=== PATIENT | female | born 1945 | race Caucasian/White ===

== ENCOUNTER 2016-08-22 08:10 | Observation (INO) | payer MEDICARE, OTHER ==
[~2016-08-22] VITALS: Ht 147.3 cm; Wt 83.9 kg
[~2016-08-22 08:10] MED LIST: DICY20TA PO; OMEP40CA11 PO; ONDA4TAB PO; RANI150C3 PO; [UNRECOGNIZED DRUG - CODE] PO
--- OUTSIDE RECORDS SUMMARY | 2016-08-22 08:16 | XMS REPORT | Continuity of Care Document ---
Author Author Vadim [facility] Address [address] [place] [address] Care Team Providers Care National Service Officer Name Role Phone MandaRaisaVijaya K Unavailable [phone] Insurance Providers Payer Name Policy Number Subscriber Name Relationship Medicare [id number] [place] PATIENT/SELF [employer] [id number] [place] PATIENT/SELF Advance Directives Directive Response Recorded Date/Time Advance Directive Information: AD BROCHURE GIVEN TO PT 08/14/16 0:21am Problems No problem information available. Medications Current Home Medications Medication Dose Units Route Directions Days/Qty Instructions Start Date Acetaminophen 325 MG (Tylenol 325 MG) 1 TAB TAB as needed Aspirin (Aspirin EC) 81 MG TABLET.DR 81 MG BY MOUTH DAILY HOLD TILL WEDNESDAY 08/16 Calcium Carbonate/Vitamin D3 (Calcium + Vitamin D Tablet) 1 EACH TABLET 1 TAB BY MOUTH NEEDED Clonidine (Catapres) 0.3 MG TABLET 0.3 MG PO TWICE DAILY For HAND TREMOR Take with a sip of water the morning of surgery. Diltiazem ER (Cardizem SR) 90 MG CAP 90 MG BY MOUTH EVERY 12 HOURS Take with a sip of water the morning of surgery. Docusate Sodium (Stool Softener) 250 MG CAPSULE 250 MG BY MOUTH DAILY Hydrocodone 5MG/Acet 325MG ([place] 5-325 Tablet) 1 EACH TABLET 1 TAB BY MOUTH EVERY 4 HOURS NEEDED PRN PAIN TAKE ONE BY MOUTH EVERY 4 HOURS NEEDED FOR PAIN. DO NOT TAKE EXTRATYLENOL PRODUCTS WHILE ON THIS MEDICATION. Ibuprofen 400 MG TABLET 400 MG BY MOUTH as needed PRN PAIN NONE SINCE Ketotifen Fumarate (Alaway) 10 ML DROPS 1 DROP BOTH EYES TWICE DAILY [place]-3 Fatty Acids (Fish Oil) 1,200 MG CAP 1,200 MG BY MOUTH TWICE DAILY LAST DOSE 06/25/16 Venlafaxine XR (Effexor XR) 75 MG CAP.ER.24H 1 TAB PO BEDTIME Past Home Medications Medication Directions Ordered Status Deleted From Drug Dictionary (Vitamin D) 400 Iu Tab Tab, Unknown Discontinued Diltiazem Hcl (Cardizem) 30 Mg Tablet Tablet, 30 Mg Po TWICE DAILY Unknown Discontinued Docusate Sodium (Colace Cap) Cap Cap, 250 Mg By Mouth DAILY Unknown Discontinued Fexofenadine Hcl (Susy Allergy) 180 Mg Tablet Tablet, 180 Mg By Mouth DAILY Unknown Discontinued Fexofenadine-Pseudoephedrine (Susy-D 12-Hr) 1 Ea Tab Tab, 1 Tab By Mouth EVERY 12 HOURS Unknown Discontinued Glucosamine/D3/Boswellia Mariah (Osteo Bi-Flex Caplet) 1 Each Tablet Tablet, Unknown Discontinued Lisinopril (Prinivil) 10 Mg Tablet Tablet, 10 Mg Po Bedtime Unknown Discontinued Naproxen Sodium (Aleve) 220 Mg Tab Tab, 200 Mg By Mouth as needed Unknown Discontinued Vitamin B Complex 1 Each Capsule Capsule, 1 Cap By Mouth DAILY Unknown Discontinued Social History No social history. Hospital Discharge Instructions No hospital discharge instructions. Plan of Care No plan of care. Functional Status No functional status results. Allergies, Adverse Reactions, Alerts Allergen Type Severity Reaction Status Last Updated IODINATED CONTRAST MEDIA - ORAL AND Allergy Unknown Active 08/09/16 IV AND ORAL CONTRAST Allergy Unknown Active 08/09/16 Immunizations Name Date Given Type *Flu Shot: Historical *Tetanus Shot: Up To Date Historical Vital Signs Vital Reading Collection Date/Time Result Blood Pressure 08/14/16 9:40am 96/49 Patient Temperature 08/14/16 9:25am 97.8 Respiratory Rate 08/14/16 9:40am 20 Pulse Rate 08/14/16 9:40am 62 Bedside Pulse Oximetry 08/14/16 9:40am 97 Height 08/14/16 6:30am 147.32 cm Height 08/14/16 6:30am 4 ft 10 in Weight 08/14/16 6:30am 79.379 kg Weight 08/14/16 6:30am 175 lb Body Mass Index 08/14/16 6:30am 36.6 Results No known relevant diagnostic tests, laboratory data and/or discharge summary. Procedures Procedure Status Date Provider(s) BIOPSY/REMOVAL LYMPH NODES Completed 07/10/16 Tavo Cervantes DO Encounters Encounter Location Arrival/Admit Date Discharge/Depart Date Attending Provider Departed Surgical [facility] 08/14/16 0:21am 08/14/16 10:35am Tavo Cervantes DO Registered [facility] 08/07/16 11:26am Fabio Zamudio MD Registered [facility] 07/16/16 1:07pm Fabio Zamudio MD Departed Surgical [facility] 07/10/16 0:37am 07/10/16 12:00pm Tavo Cervantes DO Registered [facility] 07/05/16 12:56pm Fabio Zamudio MD Registered [facility] 07/05/16 8:04am Tavo Cervantes DO Registered [facility] 07/02/16 7:27am Fabio Zamudio MD Registered [facility] 05/23/16 3:01pm Vijaya Holman
--- OUTSIDE RECORDS SUMMARY | 2016-08-22 08:16 | XMS REPORT | Continuity of Care Document ---
Author Author [facility] Address Unknown Phone Unavailable Care Team Providers Care Eligibility Manager Name Role Phone Primary Care Physician Unavailable Source Comments Some departments are not documenting in the electronic medical record. If you do not see the information that you expected, contact Release of Information in the Health Information Management department at [phone] for further assistance in locating additional records.[facility] Active Allergies and Adverse Reactions Not on File Current Medications Not on file Active Problems Not on file Social History Tobacco Use Types Packs/Day Years Used Date Never Assessed Last Filed Vital Signs Vital Sign Reading Time Taken Blood Pressure 131/98 07/27/2012 2:32 PM CDT Pulse - - Temperature - - Respiratory Rate - - Height 1.473 m (4' 10") 07/27/2012 2:32 PM CDT Weight 74.844 kg (165 lb) 07/27/2012 2:32 PM CDT Body Mass Index 34.49 07/27/2012 2:32 PM CDT Oxygen Saturation - - Plan of Care Health Maintenance Due Date Last Done Comments Physical (Comprehensive) 10/26/1950 Exam Pertussis Vaccine 10/26/1954 Tetanus Vaccine 10/26/1960 Breast Cancer Screening 1983 Colorectal Cancer 10/26/1993 Screening Shingles Vaccine 2003 Osteoporosis Screening 10/26/2008 Prevnar/Pneumovax (#1) 10/26/2008 Influenza Vaccine 01/03/2017 Results from Last 3 Months Not on file
--- OUTSIDE RECORDS SUMMARY | 2016-08-22 08:16 | XMS REPORT | Continuity of Care Document ---
Author Author Vadim [facility] Address [address] [place] [address] Care Team Providers Care Tube Bender Hand Name Role Phone MandaRaisaVijaya K Unavailable [phone] Insurance Providers Payer Name Policy Number Subscriber Name Relationship Medicare [id number] [place] PATIENT/SELF [employer] [id number] [place] PATIENT/SELF Advance Directives Directive Response Recorded Date/Time Advance Directive Information: AD BROCHURE GIVEN TO PT 07/10/16 0:37am Problems No problem information available. Medications Current Home Medications Medication Dose Units Route Directions Days/Qty Instructions Start Date Acetaminophen 325 MG (Tylenol 325 MG) 1 TAB TAB as needed Aspirin (Aspirin EC) 81 MG TABLET. 81 MG BY MOUTH DAILY HOLD ASPIRIN UNTIL WEDNESDAY 07/12 Calcium Carbonate/Vitamin D3 (Calcium + Vitamin D Tablet) 1 EACH TABLET 1 TAB BY MOUTH NEEDED Clindamycin HCl 300 MG CAPSULE 300 MG BY MOUTH EVERY 8 HOURS For ANTIBIOTIC FOR SORE THROAT/COU Clonidine (Catapres) 0.3 MG TABLET 0.3 MG PO TWICE DAILY For HAND TREMOR Take with a sip of water the morning of surgery. Diltiazem ER (Cardizem SR) 90 MG CAP 90 MG BY MOUTH EVERY 12 HOURS Take with a sip of water the morning of surgery. Docusate Sodium (Stool Softener) 250 MG CAPSULE 250 MG BY MOUTH DAILY Hydrocodone 5MG/Acet 325MG ([place] 5-325 Tablet) 1 EACH TABLET 1 TAB BY MOUTH EVERY 4 HOURS NEEDED PRN PAIN Hydrocodone 5MG/Acet 325MG ([place] 5-325 Tablet) 1 EACH TABLET 1 TAB BY MOUTH EVERY 4 HOURS NEEDED PRN PAIN TAKE ONE BY MOUTH EVERY 4 HOURS NEEDED FOR PAIN. DO NOT TAKE EXTRATYLENOL PRODUCTS WHILE ON THIS MEDICATION. Ibuprofen 400 MG TABLET 400 MG BY MOUTH as needed PRN PAIN NONE SINCE [place]-3 Fatty Acids (Fish Oil) 1,200 MG CAP 1,200 MG BY MOUTH TWICE DAILY LAST DOSE 06/25/16 Tobramycin Sulf/Dexamethasone (Tobradex Eye Drops) 5 ML DROPS.SUSP 1 DROP BOTH EYES FOUR TIMES DAILY For EYE INFECTION Venlafaxine XR (Effexor XR) 75 MG CAP.ER.24H [...] Allergen Type Severity Reaction Status Last Updated NO KNOWN DRUG ALLERGIES Allergy Unknown Active 07/05/16 Immunizations Name Date Given Type *Flu Shot: Historical *Tetanus Shot: Up To Date Historical Vital Signs Vital Reading Collection Date/Time Result Blood Pressure 07/10/16 11:50am 120/76 Patient Temperature 07/10/16 10:50am 97.4 Respiratory Rate 07/10/16 11:50am 16 Pulse Rate 07/10/16 11:50am 63 Bedside Pulse Oximetry 07/10/16 11:50am 95 Height 03/08/17 7:23am 147.32 cm Height 07/10/16 7:23am 4 ft 10 in Weight 07/10/16 7:23am 79.832 kg Weight 07/10/16 7:23am 176 lb Body Mass Index 07/10/16 7:23am 36.8 Results No known relevant diagnostic tests, laboratory data and/or discharge summary. Procedures No Known History of Procedures. Encounters Encounter Location Arrival/Admit Date Discharge/Depart Date Attending Provider Departed Surgical Day Care [facility] 07/10/16 0:37am 07/10/16 12:00pm Tavo Cervantes DO Registered [facility] 07/05/16 12:56pm Fabio Zamudio MD Registered [facility] 07/05/16 8:04am Tavo Cervantes DO Registered [facility] 07/02/16 7:27am Fabio Zamudio MD Registered [facility] 05/23/16 3:01pm Vijaya Holman
--- OUTSIDE RECORDS SUMMARY | 2016-08-22 08:17 | XMS REPORT | Continuity of Care Document ---
Author Author Vadim [facility] Address [address] [place] [address] Care Team Providers Care Crm Marketing Specialist Name Role Phone MandaRaisaVijaya K Unavailable [phone] Insurance Providers Payer Name Policy Number Subscriber Name Relationship Medicare [id number] [place] [place] PATIENT/SELF [employer] [id number] [place] [place] PATIENT/SELF Advance Directives Directive Response Recorded Date/Time Advance Directive Information: AD BROCHURE GIVEN TO PT 03/25/16 0:03am Problems No problem information available. Medications Current Home Medications Medication Dose Units Route Directions Days/Qty Instructions Start Date Acetaminophen 325 MG (Tylenol 325 MG) 1 TAB TAB as needed Amoxicillin* (Amoxil*) 875 MG TABLET 875 MG BY MOUTH THREE TIMES DAILY MASTOIDITIS TREATMENT, MRI LAST FRIDAY Aspirin (Aspirin EC) 81 MG TABLET. 81 MG BY MOUTH DAILY LAST DOSE 03/07/16 Calcium Carbonate/Vitamin D3 (Calcium + Vitamin D [...] MG BY MOUTH DAILY Hydrocodone 5MG/Acet 325MG ([place] 5-325 Tablet) 1 EACH TABLET 1 TAB BY MOUTH EVERY 4 HOURS NEEDED PRN PAIN Ibuprofen 400 MG TABLET 400 MG BY MOUTH as needed PRN PAIN STOPPED FOR PROCEDURE [place]-3 Fatty Acids (Fish Oil) 1,200 MG CAP 1,200 MG BY MOUTH TWICE DAILY LAST DOSE 03/07/16 Venlafaxine XR (Effexor XR) 75 MG CAP.ER.24H [...] NO KNOWN DRUG ALLERGIES Allergy Unknown Active 03/21/16 Immunizations Name Date Given Type *Flu Shot: Historical *Tetanus Shot: Unknown Historical Vital Signs Vital Reading Collection Date/Time Result Blood Pressure 03/25/16 10:17am 108/56 Patient Temperature 03/25/16 10:07am 98.2 Respiratory Rate 03/25/16 10:17am 18 Pulse Rate 03/25/16 10:17am 49 Bedside Pulse Oximetry 03/25/16 10:17am 95 Height 03/25/16 8:03am 147.32 cm Height 03/25/16 8:03am 4 ft 10 in Weight 03/25/16 8:03am 78.018 kg Weight 03/25/16 8:03am 172 lb Body Mass Index 03/25/16 8:03am 35.9 Results No known relevant diagnostic tests, laboratory data and/or discharge summary. Procedures No Known History of Procedures. Encounters Encounter Location Arrival/Admit Date Discharge/Depart Date Attending Provider Departed Surgical Day Care [facility] 03/25/16 0:02am 03/25/16 10:50am Tavo Cervantes DO Registered [facility] 03/15/16 2:30am Blayne Tenorio Registered [facility] 02/27/16 1:22am Fabio Zamudio MD Registered [facility] 02/26/16 8:09am Fabio Zamudio MD
--- OUTSIDE RECORDS SUMMARY | 2016-08-22 08:17 | XMS REPORT ---
Author Author Augusto Omalley Organization [employer] Address Unknown Phone Unavailable Care Team Providers Care Fire Observer Name Role Phone Augusto Omalley CP Unavailable Allergies, Adverse Reactions, Alerts Substance Reaction Event Type Iodine Info Not Available Drug Allergy Problems Problem Type Condition Code Onset Dates Condition Status Problem Lymphoma 202.80 Active Assessment Essential (primary) hypertension I10 Active Problem Essential (primary) hypertension I10 Active Assessment Lymphoma 202.80 Active Medications Medication Code System Code Instructions Start Date End Date Status Dosage Venlafaxine HCl [facility] [address]-03 75 MG Orally qd 1 tablet with food Aspirin [facility] [address] 81 MG Orally Once a day 1 tablet Susy NDC 0 prn 1 tab Ibuprofen [facility] [address]-72 Orally prn 1 tablet as needed Calcium [facility] [address] Orally qd 1 tablet with food Fish Oil [facility] [address] 1200 MG Orally Once a day 1 capsule Benadryl [facility] [address]-27 Orally prn 1 capsule as needed Clonidine HCl [facility] [address]-13 0.3 MG Orally bid 1 tablet Vitamin B Complex [facility] [address] Orally prn 1 tab Diltiazem HCl [facility] [address]-48 90 MG Orally bid 1 tablet before meals and at bedtime Stool Softener [facility] [address]-55 Orally Once a day 1 capsule as needed Procedures Procedure Coding System Code Date Office Visit, New Pt., Level 4 CPT-4 26874 Feb 22, 2015 Vital Signs Date/Time: Feb 22, 2015 BMI 35.94 Index Weight 172 lbs Height 4 ft 10 in in Cardiac Monitoring Heart Rate 98 /min Oximetry 97% % Blood Pressure Diastolic 72 mm Hg Blood Pressure Systolic 130 mm Hg Results No Known Results Summary Purpose [employer] Submission
--- NOTE | 2016-08-22 08:45 | NUR ---
ADMIT PT TO [facility] A DIRECT ADMIT FOR CHEMOTHERAPY. PT ALERT AND ORIENTED. VITALS OBTAINED AND STABLE CHARTED. PT PLEASANT AND TALKATIVE. WILL CONTINUE TO MONITOR.
[2016-08-22 08:50] VITALS: BP 117/65; PULSE 59; RESP 18; TEMP 96.7; O2SAT 95
[2016-08-22] MEDS ORDERED: DiphenhydrAMINE 50 MG/ML INJECTION IV PRN (09:30)
[2016-08-22] MEDS ORDERED: HYDROCORTISONE 100mg/2ml Injection IV PRN (09:30)
[2016-08-22 09:35] VITALS: Ht 147.3 cm; Wt 83.9 kg
[2016-08-22] MEDS ORDERED: DEXAMETHASONE 10 MG in NORMAL SALINE 50 ML IV ONE (10:00)
[2016-08-22] MEDS ORDERED: PALONOSETRON 0.25mg/5ml INJECTION IV ONE (10:00)
[2016-08-22] MEDS ORDERED: NORMAL SALINE IV ONE ×5 (10:30→17:30)
[2016-08-22] MEDS ORDERED: FOSAPREPITANT IV ONE (10:30)
[2016-08-22 10:57] LABS: BLOOD, URINE TRACE-INTACT (NEGATIVE); COLOR,URINE YELLOW (YELLOW); LEUKOCYTE ESTERASE ,URINE NEGATIVE (NEGATIVE); NITRITE,URINE NEGATIVE (NEGATIVE); UROBILINOGEN,URINE 0.2 EU/DL (NORMAL)
[2016-08-22] MEDS ORDERED: CALC1TAB PO (10:57)
[2016-08-22] MEDS ORDERED: DOCU250C77 PO (10:57)
[2016-08-22] MEDS ORDERED: VENL-68 PO (10:57)
[2016-08-22] MEDS ORDERED: DILT90CA PO (10:57)
[2016-08-22] MEDS ORDERED: CLON0.3T PO (10:57)
[2016-08-22] MEDS ORDERED: KETO10DR3 BOTH EYES (10:57)
[2016-08-22] MEDS ORDERED: MULT-933 PO (10:57)
[2016-08-22] MEDS ORDERED: ACET-2321 PO (10:57)
[2016-08-22] MEDS ORDERED: ETOPOSIDE IV ONE (11:15)
--- NOTE | 2016-08-22 11:30 | NUR ---
STATUS UA OBTAINED ORDERED. PORT A CATH TO R CHEST ACCESSED PER Cr BERMUDEZ RN. PORT A CATH NOTED TO HAVE BRISK BLOOD RETURN BEFORE MEDS GIVEN. PRE MEDS BEING GIVEN ORDERED-SEE EMAR. PT DENIES C/O'S. WILL MONITOR.
--- NOTE | 2016-08-22 12:11 | HPPDOC ---
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 She was diagnosed with lymphoma in March 2008 and underwent treatment in 2008. Unfortunately in May 2016. She found a lump in the right upper extremity which revealed a follicular lymphoma, grade 3. She received Rituximab Saturday 08/19 at the clinic and Etoposide yesterday 08/21. She has been under the care of Dr. Raphael and is starting aggressive IV chemotherapy today. Admission vital signs are as follows 96.7, pulse 59, respiration rate 18, blood pressure 117/65, room air saturations 95%. Sudha is seen and examined today. She is alert, orientated and pleasant. She is currently without complaints of pain. She does suffer from chronic scoliosis and chronic back pain that she manages with frequent chiropractic adjustments. Past Medical History Past Medical History History of lymphoma-2007 "Leaky heart valve" Spastic colon Diverticulosis Fibromyalgia Spinal stenosis Polyarthritis. GERD Asthma Rectovaginal fistula Surgical History Patient's Surgical History: Port-A-Cath placement-08/14/16 Tonsillectomy Exploratory Lap 1977 [id number] Bilateral bunionectomy-2010 Left rotator cuff repair Left knee replacement Colorectal surgery for rectovaginal fistula repair Bladder tuck Current Medications Home Meds Reported Medications Docusate Sodium (Docusate Sodium) 250 Mg Capsule, 1 CAP PO DAILY, CAP 08/22/16 Diltiazem HCl (Diltiazem ER) 90 Mg Cap.er.12h, 90 MG PO Q12HR, CAP 08/22/16 Venlafaxine HCl (Venlafaxine HCl ER) 75 Mg Cap.er.24h, 75 MG PO HS, CAP 08/22/16 Ketotifen Fumarate (Alaway) 10 Ml Drops, 1 DROP BOTH EYES BID, BOTTLE 08/22/16 Clonidine HCl (Clonidine HCl) 0.3 Mg Tablet, 1 TAB PO BID, TAB 08/22/16 Multivitamin (Multi-Day Vitamins) 1 Each Tablet, 1 TAB PO DAILY, #30 TAB 08/22/16 Calcium Carbonate/Vitamin D3 (Caltrate 600 + D Tablet) 1 Each Tablet, DAILY 08/22/16 Acetaminophen (Tylenol) 325 Mg Tablet, 1-2 TAB PO, #60 TAB 2 Refills 08/22/16 Dicyclomine Hcl (Bentyl) 20 Mg Tablet, 20 MG PO QID 01/24/11 Ondansetron Hcl (Zofran) 4 Mg Tablet, 4 MG PO PRN 01/24/11 Omeprazole (Prilosec) 40 Mg Capsule.dr, 40 MG PO BID 01/24/11 Ranitidine Hcl (Zantac) 150 Mg Capsule, 150 MG PO BID 01/24/11 Clonidine Hcl (Clonidine Hcl) 0.3 Mg Tablet, 0.3 MG PO BID 01/24/11 Allergies: Coded Allergies: No Known Allergies (Unverified , 01/24/11) Family History Family History: Father- Deseased at age 53 from [place] (also had Brain Tumor) Multiple family menters wtih breast cancer, Colorectal cancer, bladder cancer, Prostrate Cancer, Thyroid cancer Social History Smoking Status: Never smoker Marital Status: Advance Directives: Yes DPOA for Healthcare Only (: GABY) Social History Comments PCP Dr Raisa feldman FP Review of Systems Musculoskeletal General: pain (chronic back pain) All Other Systems All Other Systems: Reviewed (remainder of 10-point ROS Neg.) Physical Exam General General Nourishment: well nourished, well developed Vital Signs Vital Signs Date Time Temp Pulse Resp B/P Pulse Ox O2 Delivery O2 Flow Rate FiO2 08/22/16 08:50 96.7 59 18 117/65 95 Room Air Height (Feet): 4 Height (Inches): 10.00 ENMT Brief: FOUND: mucosa moist, normal dentition, NOT FOUND: pharnyx erythema Respiratory Brief: FOUND: clear all mcgarry, equal bilaterally, NOT FOUND: wheezes Cardiovascular (brief) Cardiac Brief: FOUND: regular rate, regular rhythm, NOT FOUND: murmur, pedal edema Integumentary (brief) Integumentary Brief: FOUND: dry, pink, warm Neurologic (brief) Neurological Brief: FOUND: cranial 2-12 intact Neurologic RN Documented GCS Eye Opening: Verbal: Motor: Total: Psychiatric (brief) FOUND: alert, attentive, normal affect, oriented Laboratory Laboratory Tests Test 08/22/16 10:20 Urine Collection Type Cleancatch-midstream Urine Color Yellow Urine Turbidity Clear Urine pH 6.0 Urine Specific [place] 1.020 Urine Protein Negative Urine Glucose (UA) Negative Urine Ketones Negative Urine Blood Trace-intact Urine Nitrite Negative Urine Bilirubin Negative Urine Urobilinogen 0.2EU/DL Urine Leukocyte Esterase Negative Urinalysis Comment Microscopic not ind. Assessment & Plan Problems: (1) Lymphoma Status: Acute (2) Encounter for chemotherapy management (3) Fibromyalgia Status: Chronic (4) Scoliosis Status: Chronic (5) Chronic back pain Status: Chronic (6) Spastic colon Status: Chronic (7) Diverticulosis Status: Chronic (8) Polyarthritis Status: Chronic Plan/Intensity of Service Admit patient to outpatient observation under the care of Dr. Nieto for lymphoma, encounter for chemotherapy. All chemotherapy and oncology orders are as per Dr. Raphael Medically, patient appears to be stable. Monitor blood pressure and continue on normal home medications including Cardizem and Catapres twice a day SCDs to bilateral lower extremity for DVT prophylaxis Zofran available as needed for nausea Patient may have regular diet and be up with assistance At time of discharge her medical care will return to her primary care provider at [facility], Dr. Raisa Holman Code Status Limited Code Hospital Course Summary Disclaimer The hospital course summary below is not to be considered part of the above Progress Note. Hospital Course Summary Admit patient to outpatient observation under the care of Dr. Nieto for lymphoma, encounter for chemotherapy. All chemotherapy and oncology orders are as per Dr. Raphael Medically, patient appears to be stable. Monitor blood pressure and continue on normal home medications including Cardizem and Catapres twice a day SCDs to bilateral lower extremity for DVT prophylaxis Zofran available as needed for nausea Patient may have regular diet and be up with assistance At time of discharge her medical care will return to her primary care provider at [facility], KARTHIKEYAN Barraza MD 08/22/16 4676: Past Medical History Current Medications Home Meds Reported Medications Docusate Sodium (Docusate Sodium) 250 Mg Capsule, 1 CAP PO DAILY, CAP 08/22/16 Diltiazem HCl (Diltiazem ER) 90 Mg Cap.er.12h, 90 MG PO Q12HR, CAP 08/22/16 Venlafaxine HCl (Venlafaxine HCl ER) 75 Mg Cap.er.24h, 75 MG PO HS, CAP 08/22/16 Ketotifen Fumarate ([place]) 10 Ml Drops, 1 DROP BOTH EYES BID, BOTTLE 08/22/16 Clonidine HCl (Clonidine HCl) 0.3 Mg Tablet, 1 TAB PO BID, TAB 08/22/16 Multivitamin (Multi-Day Vitamins) 1 Each Tablet, 1 TAB PO DAILY, #30 TAB 08/22/16 Calcium Carbonate/Vitamin D3 (Caltrate 600 + D Tablet) 1 Each Tablet, DAILY 08/22/16 Acetaminophen (Tylenol) 325 Mg Tablet, 1-2 TAB PO, #60 TAB 2 Refills 08/22/16 Dicyclomine Hcl (Bentyl) 20 Mg Tablet, 20 MG PO QID 01/24/11 Ondansetron Hcl (Zofran) 4 Mg Tablet, 4 MG PO PRN 01/24/11 Omeprazole (Prilosec) 40 Mg Capsule.dr, 40 MG PO BID 01/24/11 Ranitidine Hcl (Zantac) 150 Mg Capsule, 150 MG PO BID 01/24/11 Clonidine Hcl (Clonidine Hcl) 0.3 Mg Tablet, 0.3 MG PO BID 01/24/11 Allergies: Coded Allergies: No Known Allergies (Unverified , 01/24/11) Assessment & Plan Problems: (1) Lymphoma Status: Acute (2) Encounter for chemotherapy management (3) Fibromyalgia Status: Chronic (4) Scoliosis Status: Chronic (5) Chronic back pain Status: Chronic (6) Spastic colon Status: Chronic (7) Diverticulosis Status: Chronic (8) Polyarthritis Status: Chronic (9) Obesity (BMI 30-39.9) Status: Chronic Plan/Intensity of Service Have independently interviewed and examined pt. Chart reviewed. Case discussed with Dr Perdomo and my INDUSTRIAL RELATIONS DIRECTOR. Care plan developed with my supervision (Chemo as per ONC); agree with above. Doing well overall. Feels ready for chemo-not going to let the cancer get her down. Breathing well-not with SOA, cough, congestion or pain with breathing. No chest pressure, pain or heaviness. Appetite stable. No pain with swallowing. No f/c. Does note difficulty sleeping when on steroids-feels 'wound-up.' Lungs: clear bilaterally, no distress on RA CV: regular AB: Soft nt/nd +BS MSE: awake alert appropriate Plan; Initiate chemo as per ONC-IVF for hydration to minimize potential toxicities. SCD for DVT prevention. Continue home medications. Zofran prn nausea. Ambien 5mg at night as needed for sleep. DVT Prophylaxis: SCD'S VLAD BERNSTEIN V INDUSTRIAL RELATIONS DIRECTOR Aug 22, 2016 11:54 KARTHIKEYAN NIETO MD Aug 22, 2016 13:56
[2016-08-22] MEDS ORDERED: ONDANSETRON 4mg/2ml INJECTION IV PRN (12:15)
[2016-08-22] MEDS ORDERED: ACETAMINOPHEN 325 MG TABLET PO PRN (12:15)
[2016-08-22] MEDS ORDERED: CARBOPLATIN IV ONE ×2 (12:30→16:30)
--- NOTE | 2016-08-22 13:25 | CONSPD ---
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 Patient was seen by Dr. Raphael, then had consultation with Dr. Jhonatan Pendleton at [facility]. Her case was reviewed with multidisciplinary lymphoma conference in [place], and treatment option was determined to be Rituxan plus ifosfamide plus carboplatin plus etoposide or R- ICE chemotherapy. She received Rituximab Friday08/19/16, Etoposide yesterday , and remainder of treatment with ifosfamide plus carboplatin plus etoposide will be continued inpatient at [facility], secondary to risk for acute renal injury, hematuria, and potential neurological toxicity. Patient is alone in room at time of intake, reclining in hospital bed. She is alert and oriented, pleasant affect and currently has no complaints. Reports had mild headache yesterday, relieved with Tylenol. Has chronic intermittent back pain secondary to scoliosis. She has a long history of benign essential tremor and subjectively reports "leaky valve " and follows with electrical sign servicer Dr. Augusto Omalley every 6 months. Past medical history includes fibromyalgia, diverticulosis, GERD, asthma and polyarthritis. Past Medical History Past Medical History History of lymphoma-2007 "Leaky heart valve" Spastic colon Diverticulosis Fibromyalgia Spinal stenosis Polyarthritis. GERD Asthma Rectovaginal fistula Surgical History Patient's Surgical History: Port-A-Cath placement-08/14/16 Tonsillectomy Exploratory Lap 1977 [id number] Bilateral bunionectomy-2010 Left rotator cuff repair Left knee replacement Colorectal surgery for rectovaginal fistula repair Bladder tuck Current Medications Home Meds Reported Medications Aspirin (Aspir 81) 81 Mg Tablet., 81 MG PO DAILY 08/22/16 Dicyclomine HCl (Dicyclomine HCl) 10 Mg Capsule, 10 MG PO QID Y for PRN ORDERS 08/22/16 Docusate Sodium (Docusate Sodium) 250 Mg Capsule, 250 MG PO DAILY Y for CONSTIPATION 08/22/16 Diltiazem HCl (Diltiazem ER) 90 Mg Cap.er.12h, 90 MG PO Q12HR 08/22/16 Venlafaxine HCl (Venlafaxine HCl ER) 75 Mg Cap.er.24h, 75 MG PO HS 08/22/16 Ketotifen Fumarate (Alaway) 10 Ml Drops, 1 DROP BOTH EYES BID 08/22/16 Multivitamin (Multi-Day Vitamins) 1 Each Tablet, 1 TAB PO DAILY 08/22/16 Calcium Carbonate/Vitamin D3 (Caltrate 600 + D Tablet) 1 Each Tablet, 1 TAB PO DAILY Y for PRN ORDERS 08/22/16 Acetaminophen (Tylenol) 325 Mg Tablet, 325-650 MG PO Q4HR Y for PAIN 08/22/16 Omeprazole (Prilosec) 40 Mg Capsule.dr, 40 MG PO BID 01/24/11 Ranitidine Hcl (Zantac) 150 Mg Capsule, 150 MG PO BID 01/24/11 Clonidine Hcl (Clonidine Hcl) 0.3 Mg Tablet, 0.3 MG PO BID 01/24/11 Allergies: Coded Allergies: No Known Allergies (Unverified , 01/24/11) Family History Family History: Father- Deseased at age 53 from ID (also had Brain Tumor) Multiple family menters [facility] breast cancer, Colorectal cancer, bladder cancer, Prostrate Cancer, Thyroid cancer Social History Smoking Status: Never smoker Marital Status: Advance Directives: Yes DPOA for Healthcare Only (: GABY) Review of Systems Constitutional: DENIES: chills, fever, weakness, weight gain, weight loss ENMT Mouth/Throat: DENIES: change in swallowing, sore throat Cardiovascular other ("leaky valve"), DENIES: chest pain, dyspnea on exertion Pulmonary Respiratory: DENIES: cough, dyspnea GI Upper Abdomen: DENIES: dysphagia, food intolerances, nausea Lower Abdomen: DENIES: blood in stool, constipation, diarrhea General: DENIES: dysuria, frequency, hematuria Musculoskeletal General: pain (chronic back pain, secondary to scoliosis) Integumentary Skin: DENIES: itching, rash Neurological General: headache (mild headache yesterday. None today), tremor (chronic essential tremor), DENIES: change in strength Psychiatric Psychiatric: DENIES: anxiety, depression, nervousness Endocrine DENIES: heat/cold intolerance Physical Exam General General Nourishment: obese General Body Habitus: well groomed Vital Signs Vital Signs Date Time Temp Pulse Resp B/P Pulse Ox O2 Delivery O2 Flow Rate FiO2 08/22/16 08:50 96.7 59 18 117/65 95 Room Air Height (Feet): 4 Height (Inches): 10.00 Eyes Brief: FOUND: EOMI, PERRL, NOT FOUND: scleral icterus ENMT Brief: FOUND: mucosa moist, NOT FOUND: pharnyx erythema Neck Brief: NOT FOUND: adenopathy, tenderness Respiratory Brief: FOUND: clear all mcgarry, equal bilaterally, NOT FOUND: rales , wheezes Cardiovascular (brief) Cardiac Brief: FOUND: pedal edema (trace pedal edema bilateral lower extremities), regular rate, regular rhythm, NOT FOUND: gallop, murmur Abdomen (brief) Abdominal Brief: FOUND: BS normo active x4, soft, NOT FOUND: hepatosplenomegaly , tender Lymphatic (brief) Lymphatic Brief: NOT FOUND: adenopathy Integumentary (brief) Integumentary Brief: FOUND: dry, warm, NOT FOUND: rash Neurologic (brief) Neurological Brief: FOUND: cranial 2-12 intact, NOT FOUND: motor (no acute motor deficit) Neurologic RN Documented GCS Eye Opening: Verbal: Motor: Total: Psychiatric (brief) FOUND: alert, attentive, normal affect, oriented Laboratory Laboratory Tests Test 08/22/16 10:20 Urine Collection Type Cleancatch-midstream Urine Color Yellow Urine Turbidity Clear Urine pH 6.0 Urine Specific [place] 1.020 Urine Protein Negative Urine Glucose (UA) Negative Urine Ketones Negative Urine Blood Trace-intact Urine Nitrite Negative Urine Bilirubin Negative Urine Urobilinogen 0.2EU/DL Urine Leukocyte Esterase Negative Urinalysis Comment Microscopic not ind. Impression/Recommendation Impression 1. Relapsed non-Hodgkin's lymphoma, localized to right upper extremity, status post excision. Patient initially diagnosed in 2007 with grade 3 follicular non- Hodgkin's lymphoma, treated with R-CHOP followed by 2 years of maintenance rituximab, completed in November 2010 Recommendation Continue R-ICE chemotherapy with close monitoring of renal, neurological function, and CBC. IV hydration ordered by Dr. Perdomo. Patient has no questions at this time. ROSA PERDOMO 08/22/16 1756: Past Medical History Current Medications Home Meds Reported Medications Aspirin (Aspir 81) 81 Mg Tablet.dr, 81 MG PO DAILY 08/22/16 Dicyclomine HCl (Dicyclomine HCl) 10 Mg Capsule, 10 MG PO QID Y for PRN ORDERS 08/22/16 Docusate Sodium (Docusate Sodium) 250 Mg Capsule, 250 MG PO DAILY Y for CONSTIPATION 08/22/16 Diltiazem HCl (Diltiazem ER) 90 Mg Cap.er.12h, 90 MG PO Q12HR 08/22/16 Venlafaxine HCl (Venlafaxine HCl ER) 75 Mg Cap.er.24h, 75 MG PO HS 08/22/16 Ketotifen Fumarate (Alaway) 10 Ml Drops, 1 DROP BOTH EYES BID 08/22/16 Multivitamin (Multi-Day Vitamins) 1 Each Tablet, 1 TAB PO DAILY 08/22/16 Calcium Carbonate/Vitamin D3 (Caltrate 600 + D Tablet) 1 Each Tablet, 1 TAB PO DAILY Y for PRN ORDERS 08/22/16 Acetaminophen (Tylenol) 325 Mg Tablet, 325-650 MG PO Q4HR Y for PAIN 08/22/16 Omeprazole (Prilosec) 40 Mg Capsule., 40 MG PO BID 01/24/11 Ranitidine Hcl (Zantac) 150 Mg Capsule, 150 MG PO BID 01/24/11 Clonidine Hcl (Clonidine Hcl) 0.3 Mg Tablet, 0.3 MG PO BID 01/24/11 Allergies: Coded Allergies: No Known Allergies (Unverified , 01/24/11) Impression/Recommendation Impression Patient examined, chart reviewed, currently admitted for ICD chemotherapy. She had Rituxan on Friday and etoposide on Friday. We'll hydrate with the 5W with 2 A of sodium bicarbonate 1 L over 2 hours followed by normal saline 100 mL /h overnight. Her original UA did have trace hematuria. Repeat UA has been negative. Item Value Date Time Urine Blood Negative 08/22/16 1726 Urine Blood Trace-intact A 08/22/16 1020 We'll watch for neurologic toxicity from the ifosfamide by a monitoring signature, will follow UA's for hematuria. Will obtain renal function in the morning. She is having difficulty with the increased nervousness from the steroids. This may require a sedative medication Recommendation Ice per Dr. Raphael's orders Added hydration. CHOLO WYATT [employer] SALES SUPERVISOR Aug 22, 2016 13:15 ROSA PERDOMO Aug 22, 2016 17:56
[2016-08-22] MEDS ORDERED: ZOLPIDEM 5 MG TABLET PO PRN (14:00)
[2016-08-22] MEDS: DICYCLOMINE 20 MG TABLET PO SCH ×3 (14:31→20:54)
[2016-08-22] MEDS ORDERED: SODIUM BICARBONATE 100 MEQ in D5W 1,000 ML IV ONE (15:00)
[2016-08-22 15:07] VITALS: RESP 16; O2SAT 93
--- NOTE | 2016-08-22 15:25 | NUR ---
HAY BEAN SCORE IS 1. Addendum: 08/22/16 at 1526 by OLIVERIO SEQUEIRA Amended: Links added.
--- NOTE | 2016-08-22 16:08 | NUR ---
CM THIS WORKER VISITED PT IN ROOM, INTRODUCED SELF AND ROLE OF CASE MANAGEMENT. PT STATED SHE HAS GOOD FAMILY SUPPORT, WILL BE LATER TO VISIT. PT PLANS ON RETURNING HOME AFTER DISCHARGE. PT DENIED ANY NEEDS AT THIS TIME AND WAS ENCOURAGED TO CALL WITH ANY QUESTIONS OR CONCERNS. Addendum: 08/22/16 at 1611 by OLIVERIO SEQUEIRA Amended: Links added.
[2016-08-22] MEDS ORDERED: DICY10CA13 PO (16:14)
[2016-08-22] MEDS ORDERED: ASPI-557 PO (16:17)
[2016-08-22 16:26] VITALS: BP 134/70; PULSE 51; RESP 20; TEMP 98.3; O2SAT 93
[2016-08-22] MEDS: NORMAL SALINE 1,000 ML IV SCH (16:43)
[2016-08-22] MEDS ORDERED: MESNA IV ONE (17:30)
[2016-08-22] MEDS ORDERED: IFOSFAMIDE IV ONE (17:30)
[2016-08-22 17:36] LABS: BLOOD, URINE NEGATIVE (NEGATIVE); COLOR,URINE YELLOW (YELLOW); LEUKOCYTE ESTERASE ,URINE NEGATIVE (NEGATIVE); NITRITE,URINE NEGATIVE (NEGATIVE); UROBILINOGEN,URINE 0.2 EU/DL (NORMAL)
[2016-08-22] MEDS ORDERED: PROCHLORPERAZINE 10 MG TABLET PO PRN (18:00)
[2016-08-22] MEDS: OMEPRAZOLE 20 MG CAPSULE PO SCH (18:00)
--- NOTE | 2016-08-22 19:00 | NUR ---
SUMMARY PT CONTINUES UP AD CR IN ROOM. PT VOIDING FREQUENTLY. CHEMO INFUSING ORDERED. VITALS STABLE CHARTED. PT EATING WITHOUT COMPLAINTS OF NAUSEA. WILL MONITOR.
[2016-08-22] MEDS: RANITIDINE 150 MG TABLET PO SCH (20:53)
[2016-08-22] MEDS: DILTIAZEM 90 MG PO SCH (20:54)
[2016-08-22] MEDS: EYE BOTH EYES SCH (20:55)
[2016-08-22] MEDS: CLONIDINE 0.3 MG PO SCH (20:55)
[2016-08-22] MEDS: KETOTIFEN 0.025% BOTH EYES SCH (20:55)
[2016-08-22] MEDS ORDERED: CLONIDINE 0.3 MG TABLET PO SCH (21:00)
[2016-08-22] MEDS ORDERED: VENLAFAXINE 75 MG PO SCH (22:00)
[2016-08-22 23:35] VITALS: BP 129/83; PULSE 58; RESP 16; TEMP 98.1; O2SAT 95
[2016-08-23 01:39] LABS: BLOOD, URINE NEGATIVE (NEGATIVE); COLOR,URINE YELLOW (YELLOW); LEUKOCYTE ESTERASE ,URINE NEGATIVE (NEGATIVE); NITRITE,URINE NEGATIVE (NEGATIVE); UROBILINOGEN,URINE 0.2 EU/DL (NORMAL)
[2016-08-23] MEDS: NORMAL SALINE 1,000 ML IV SCH ×3 (02:59→13:59)
[2016-08-23 05:17] LABS: HCT - HEMATOCRIT 33.9 % (36-46); HGB - HEMOGLOBIN 11.4 GM/DL (12-16); MEAN CORPUSCULAR HGB 32.4 UUG (26-34); MEAN CORPUSCULAR HGB CONC(MCHC 33.6 GM/DL (31-37); MEAN CORPUSCULAR VOLUME 96.3 UM3 (80-100); MEAN PLATELET VOLUME 9.6 UM3 (9.4-12.4); RED BLOOD COUNT 3.52 M/MM3 (4.00-5.20); WBC - WHITE BLOOD COUNT 6.8 T/MM3 (4.5-11.0)
--- NOTE | 2016-08-23 05:21 | NUR ---
summary patient pleasant and cooperative. up ad freddy, frequent urination, urge incontinence. denies pain, n/v, soa. vss. PAC flushes, aspirates well. Receiving chemo--tolerating well. no new concerns.
[2016-08-23 05:29] LABS: ALBUMIN 3.3 G/DL (3.5-5.0); ALBUMIN/GLOBULIN RATIO 1.2 RATIO (1.1-2.2); ALKALINE PHOSPHATASE 45 U/L (38-126); ALT (SGPT) 20 U/L (9-52); ANION GAP 11 MEQ/L (5-15); AST (SGOT) 18 U/L (14-36); BUN/CREATININE RATIO 24 RATIO (6-26); CALCIUM 8.5 MG/DL (8.4-10.2); CHLORIDE 109 MEQ/L (98-107); CO2 - CARBON DIOXIDE 24 MEQ/L (22-30); CREATININE 0.7 MG/DL (0.7-1.2); GLOMERULAR FILTRATION RATE 82; GLUCOSE 143 MG/DL (65-110); LDH 282 U/L (313-618); MAGNESIUM 2.2 MG/DL (1.6-2.3); PHOSPHORUS 2.5 MG/DL (2.5-4.5); POTASSIUM 3.5 MEQ/L (3.6-5); SODIUM 144 MEQ/L (134-144); TOTAL PROTEIN 6.1 G/DL (6.3-8.2); URIC ACID 4.4 MG/DL (2.5-7.5)
[2016-08-23] MEDS: OMEPRAZOLE 20 MG CAPSULE PO SCH ×2 (05:35→17:07)
[2016-08-23 06:14] LABS: LYMPHOCYTES # (MANUAL) 0.4 T/MM3 (1-4.8); MONOCYTES # (MANUAL) 0.1 T/MM3 (0-0.8); NEUTROPHILS #(MANUAL)-ABSOLUTE 6.3 T/MM3 (1.8-7.7); TOTAL CELLS COUNTED 100 %
[2016-08-23 06:46] LABS: BLOOD, URINE NEGATIVE (NEGATIVE); COLOR,URINE YELLOW (YELLOW); LEUKOCYTE ESTERASE ,URINE NEGATIVE (NEGATIVE); NITRITE,URINE NEGATIVE (NEGATIVE); UROBILINOGEN,URINE 0.2 EU/DL (NORMAL)
[2016-08-23 07:41] VITALS: BP 147/84; PULSE 61; RESP 16; TEMP 97.9; TEMP 98.1; O2SAT 98
[2016-08-23 08:00] VITALS: PULSE 61; RESP 16
[2016-08-23] MEDS: EYE BOTH EYES SCH (08:31)
[2016-08-23] MEDS: DICYCLOMINE 20 MG TABLET PO SCH ×3 (08:31→17:07)
[2016-08-23] MEDS: RANITIDINE 150 MG TABLET PO SCH (08:31)
[2016-08-23] MEDS: KETOTIFEN 0.025% BOTH EYES SCH (08:31)
[2016-08-23] MEDS: DILTIAZEM 90 MG PO SCH (08:32)
[2016-08-23] MEDS: CLONIDINE 0.3 MG PO SCH (08:32)
[2016-08-23] MEDS ORDERED: DOCUSATE SODIUM 100 MG CAPSULE PO SCH (09:00)
[2016-08-23] MEDS ORDERED: CALCIUM 600mg + VIT D 400 TABLET PO SCH (09:00)
[2016-08-23] MEDS ORDERED: POTASSIUM CHLORIDE 20 MEQ TABLET PO ONE ×2 (12:30→17:30)
--- NOTE | 2016-08-23 14:00 | PNPDOC ---
CHOLO CAMPOS JOB PRESS OPERATOR 08/23/16 1356: Subjective Date DATE: 08/23/16 TIME: 13:52 Reclining in hospital bed, alone in room. Pleasant affect. States tolerating chemotherapy well. Her only complaint is increased voiding. Denies headache, no chest pain, shortness of air, neuropathy, nausea, vomiting or new aches or pains. General: No fever, no night sweats Eyes: No redness, no pain, no diplopia ENT: No mouth sores, no trouble swallowing Cardiac: No chest pain no palpitations Pulmonary: No cough, no shortness of breath, no wheezing Abdomen: No pain, no nausea vomiting, no diarrhea or constipation : Increased urination Musculoskeletal: No arthritis, no myalgias Neurological: No headaches, no focal weakness Skin: No rash, no sores Psychiatric: No anxiety, no depression Objective Vital Signs Vital Signs 08/23/16 08/23/16 07:41 08:00 Temp 97.9 Pulse 61 61 Resp 16 16 B/P 147/84 Pulse Ox 98 O2 Delivery Room Air Height (Feet): 4 Height (Inches): 10.00 Weight (Kilograms): 83.900 General Alert, Orientated x 3, No Acute Distress Eyes (Brief) Eyes: FOUND: PERRL, NOT FOUND: scleral icterus Neck (Brief) Neck: NOT FOUND: adenopathy, tenderness Respiratory (Brief) Respiratory: FOUND: clear all mcgarry, equal bilaterally, NOT FOUND: wheezes Cardiovascular (Brief) Cardiac: FOUND: regular rate, regular rhythm, NOT FOUND: pedal edema Abdomen (Brief) Abdominal: FOUND: BS normo active x4, soft, NOT FOUND: hepatosplenomegaly Lymphatic (Brief) NOT FOUND: adenopathy Musculoskeletal (Brief) NOT FOUND: loss of motion, tenderness Neurologic (Brief) FOUND: cranial 2-12 intact, motor (no acute motor deficit) Psychiatric (Brief) FOUND: alert, attentive, normal affect, oriented Laboratory Laboratory Tests Test 08/22/16 17:26 08/23/16 01:10 08/23/16 04:44 08/23/16 06:34 Urine Collection Type Cleancatch-midstream Cleancatch-midstream Cleancatch-midstream Urine Color Yellow Yellow Yellow Urine Turbidity Clear Clear Clear Urine pH 7.0 6.5 6.5 Urine Specific [place] <=1.005 <=1.005 1.010 Urine Protein Negative Negative Negative Urine Glucose (UA) 2+ Negative Negative Urine Ketones Negative 3+ 3+ Urine Blood Negative Negative Negative Urine Nitrite Negative Negative Negative Urine Bilirubin Negative Negative Negative Urine Urobilinogen 0.2EU/DL 0.2EU/DL 0.2EU/DL Urine Leukocyte Esterase Negative Negative Negative Urinalysis Comment Microscopic not ind. Microscopic not ind. Microscopic not ind. White Blood Count 6.8T/MM3 Red Blood Count 3.52M/MM3 Hemoglobin 11.4GM/DL Hematocrit 33.9% Mean Corpuscular Volume 96.3UM3 Mean Corpuscular Hemoglobin 32.4UUG Mean Corpuscular Hemoglobin Concent 33.6GM/DL RDW Standard Deviation 44.5FL Platelet Count 269T/MM3 Mean Platelet Volume 9.6UM3 Immature Granulocyte % (Auto) % Neutrophils (%) (Auto) % Lymphocytes (%) (Auto) % Monocytes (%) (Auto) % Eosinophils (%) (Auto) % Basophils (%) (Auto) % Absolute Immature Granulocyte (auto T/MM3 Absolute Neutrophils (auto) T/MM3 Absolute Lymphocytes (auto) T/MM3 Absolute Monocytes (auto) T/MM3 Absolute Eosinophils (auto) T/MM3 Absolute Basophils (auto) T/MM3 Neutrophils % (Manual) 93.0% Lymphocytes % (Manual) 6.0% Monocytes % (Manual) 1.0% Absolute Neutrophils (Manual) 6.3T/MM3 Lymphocytes # (Manual) 0.4T/MM3 Monocytes # (Manual) 0.1T/MM3 Red Cell Morphology Comment Normal Turbidity < 20 Sodium Level 144MEQ/L Potassium Level 3.5MEQ/L Chloride Level 109MEQ/L Carbon Dioxide Level 24MEQ/L Anion Gap 11MEQ/L Blood Urea Nitrogen 17.0MG/DL Creatinine 0.7MG/DL Glomerular Filtration Rate Calc 82 BUN/Creatinine Ratio 24RATIO Glucose Level 143MG/DL Calculated Osmolality 281MOSM/KG Uric Acid 4.4MG/DL Calcium Level 8.5MG/DL Phosphorus Level 2.5MG/DL Magnesium Level 2.2MG/DL Total Bilirubin 0.60MG/DL Icterus Index < 2 Aspartate Amino Transf (AST/SGOT) 18U/L Alanine Aminotransferase (ALT/SGPT) 20U/L Alkaline Phosphatase 45U/L Lactate Dehydrogenase 282U/L Total Protein 6.1G/DL Albumin 3.3G/DL Globulin 2.8G/DL Albumin/Globulin Ratio 1.2RATIO Chemistry Specimen Hemolysis < 15 Assessment & Plan Assessment 1. Relapsed non-Hodgkin's lymphoma, localized to right upper extremity, status post excision. Patient initially diagnosed in 2007 with grade 3 follicular non- Hodgkin's lymphoma, treated with R-CHOP followed by 2 years of maintenance rituximab, completed in November 2010 Plan/Intensity of Service Chemotherapy will be completed today. Discussed follow-up care with patient. She is aware needs Neupogen, orders have been sent to [facility] in [place]. Discussed using Claritin prophylactically to reduce bone aching with Neupogen. Reviewed signs/symptoms to report. Discussed neutropenic precautions. Following discussion, patient has no questions. She is aware has follow-up September [address] Raphael with labs Code Status Limited Code Hospital Course Summary Disclaimer The visit summary below is not to be considered part of the above Progress Note. Hospital Course Summary Admit patient to outpatient observation under the care of Dr. Nieto for lymphoma, encounter for chemotherapy. All chemotherapy and oncology orders are as per Dr. Raphael Medically, patient appears to be stable. Monitor blood pressure and continue on normal home medications including Cardizem and Catapres twice a day SCDs to bilateral lower extremity for DVT prophylaxis Zofran available as needed for nausea Patient may have regular diet and be up with assistance At time of discharge her medical care will return to her primary care provider at [facility], ROSA Burciaga 08/23/16 7543: Assessment & Plan Assessment Patient examined, chart reviewed, she is tolerated her chemotherapy well. She will complete the ifosfamide about 6:00 this evening. She will have 1 hour of etoposide after that. Will get 1 hour of normal saline pasty etoposide. She can go home after the etoposide and she needs to begin G-CSF 24 hours after completion of the chemotherapy. Orders have been sent to [place] for G-CSF 480 g daily. Patient will follow up with Dr. Raphael. I participated in the development of the plan of care of this patient with Phoebe Campos. Item Value Date Time White Blood Count 6.8 T/MM3 08/23/16 0444 Hemoglobin 11.4 GM/DL L 08/23/16 0444 Platelet Count 269 T/MM3 08/23/16 0444 Lactate Dehydrogenase 282 U/L L 08/23/16 0444 Uric Acid 4.4 MG/DL 08/23/16 0444 Potassium Level 3.5 MEQ/L L 08/23/16 0444 Creatinine 0.7 MG/DL 08/23/16 0444 Urine Blood Negative 08/23/16 0634 CHOLO CAMPOS APRN Aug 23, 2016 13:56 ROSA MEDRANO Aug 23, 2016 16:23
[2016-08-23 16:05] VITALS: BP 159/87; PULSE 58; RESP 14; TEMP 97.8; O2SAT 96
--- NOTE | 2016-08-23 16:23 | PNPDOC ---
Subjective Date DATE: 08/23/16 TIME: 16:16 Subjective F/U: Lymphoma, encounter for chemotherapy Tolerating chemo well. Urinating frequently-weight increased with IVF given. Breathing well-not congested or SOA. No chest pain. No nausea. Objective Vital Signs Vital signs Vital Signs Date Time Temp Pulse Resp B/P Pulse Ox O2 Delivery O2 Flow Rate FiO2 08/23/16 16:05 97.8 58 14 159/87 96 Room Air Height (Feet): 4 Height (Inches): 10.00 Weight (Kilograms): 83.900 General General Appearance: Alert, Obese, Orientated x 3, Well Nourished, Well Developed, Cooperative, Looks Stated Age Eyes (Brief) Eyes: FOUND: EOMI, PERRL, NOT FOUND: scleral icterus ENMT (Brief) ENMT: FOUND: hearing intact, mucosa moist Neck (Brief) Neck: FOUND: midline, NOT FOUND: nuchal rigidity, spasm Respiratory (Brief) Respiratory: FOUND: clear all mcgarry, equal bilaterally, NOT FOUND: rales, wheezes Cardiovascular (Brief) Cardiac: FOUND: regular rate, regular rhythm Abdomen (Brief) Abdominal: FOUND: BS normo active x4, soft, NOT FOUND: distended, tender Extremities (Brief) Extremity : Side: Bilateral Extremity: leg Extremity Finding: FOUND: edema (+1) Musculoskeletal (Brief) Musculoskeletal: FOUND: extremities move equally, NOT FOUND: deformity, spasm Integumentary (Brief) Integumentary: FOUND: dry, warm Neurologic (Brief) Neurological: FOUND: cranial 2-12 intact, motor (Intact ) Psychiatric (Brief) Psychiatric: FOUND: alert, attentive, normal affect, oriented Laboratory Laboratory Laboratory Tests 08/23/16 04:44 Laboratory Tests 08/23/16 04:44 Assessment & Plan Problems: (1) Lymphoma Status: Acute (2) Encounter for chemotherapy management (3) Hypokalemia Status: Acute Assessment & Plan: Not POA (4) Fibromyalgia Status: Chronic (5) Scoliosis Status: Chronic (6) Chronic back pain Status: Chronic (7) Spastic colon Status: Chronic (8) Diverticulosis Status: Chronic (9) Polyarthritis Status: Chronic (10) Obesity (BMI 30-39.9) Status: Chronic Plan/Intensity of Service Replace potassium orally. Allow natriuresis to motivate excess fluid. Chemo to be completed this evening - anticipate D/C to home if doing well. Will need Neupogen tomorrow at [facility] has made arrangements. F/U with Dr Raphael on September 04 for lab and evaluation. Case discussed with HAY and Dr Perdomo. DVT Prophylaxis: SCD'S Code Status Limited Code Hospital Course Summary Disclaimer The hospital course summary below is not to be considered part of the above Progress Note. Hospital Course Summary 08/22 Admit patient to outpatient observation under the care of Dr. Nieto for lymphoma, encounter for chemotherapy. All chemotherapy and oncology orders are as per Dr. Raphael Medically, patient appears to be stable. Monitor blood pressure and continue on normal home medications including Cardizem and Catapres twice a day SCDs to bilateral lower extremity for DVT prophylaxis Zofran available as needed for nausea Patient may have regular diet and be up with assistance At time of discharge her medical care will return to her primary care provider at [facility], Dr. Raisa Holman 08/23 Tolerating chemo well. Urinating frequently-weight increased with IVF given. Breathing well-not congested or SOA. No chest pain. No nausea. Replace potassium orally. Allow natriuresis to motivate excess fluid. Chemo to be completed this evening - anticipate D/C to home if doing well. Will need Neupogen tomorrow at [facility] has made arrangements. F/U with Dr Raphael on September 04 for lab and evaluation. KARTHIKEYAN NIETO MD Aug 23, 2016 16:19
--- NOTE | 2016-08-23 17:54 | NUR ---
SHIFT PT HAS BEEN PLEASANT AND COOPERATIVE ALL SHIFT. PT IS A&OX3, UP WITH NO ASSIST, LOW FALL. PT DENIES PAIN, N/V AND SOA. PT IS ON ROOM AIR. PT HAS BEEN UP TO REST ROOM AND UP IN ROOM BY SELF. PT HAS ALSO SAT AT SIDE OF BED FOR MEALS AND EATS 100%. PENDING DISMISSAL TONIGHT POST CHEMO. NO OTHER CHANGES SINCE PREVIOUS SHIFT.
[2016-08-23] MEDS ORDERED: DEXAMETHASONE 10 MG in NORMAL SALINE 50 ML IV ONE (18:30)
[2016-08-23 18:38] LABS: BLOOD, URINE NEGATIVE (NEGATIVE); COLOR,URINE YELLOW (YELLOW); LEUKOCYTE ESTERASE ,URINE NEGATIVE (NEGATIVE); NITRITE,URINE NEGATIVE (NEGATIVE); UROBILINOGEN,URINE 0.2 EU/DL (NORMAL)
[2016-08-23] MEDS ORDERED: NORMAL SALINE IV ONE (19:00)
[2016-08-23] MEDS ORDERED: ETOPOSIDE IV ONE (19:00)
--- NOTE | 2016-08-23 22:08 | NUR ---
DISMISSAL PT DISMISSED TO HOME AT THIS TIME. DISMISSAL INSTRUCTIONS GIVEN TO HER BY DAY SHIFT. PT DENIES FURTHER NEEDS. SHE IS ABLE TO GET DRESSED BY HERSELF. PT IS ALERT AND ORIENTED X3. HEPARIN LOCK TO BE GIVEN PRIOR TO DC PAC. NEEDLE REMOVED PRIOR TO HEP LOCK. PAC REACCESSED FOR HEP LOCK AND THEN DC'D AGAIN. PT DENIES FURTHER QUESTIONS. PT IS WHEELED OUT ER DOORS.
--- NOTE | 2016-08-24 14:31 | DSF ---
ADMISSION DIAGNOSIS Lymphoma, encounter for chemotherapy. DISCHARGE DIAGNOSES Relapse non-Hodgkin's lymphoma. ASSOCIATED CONDITIONS AND COMPLICATIONS Encounter for chemotherapy. Hypokalemia (not present on admission). Fibromyalgia. Scoliosis. Chronic back pain. Spastic colon . Diverticulosis. Polyarthritis. Obesity with BMI 38.7. CONSULTANTS Dr. Perdomo/Dr. Raphael--Oncology. PROCEDURE R-ICE chemotherapy. CLINICAL RESUME Patient is a 70-year-old female who presents to [facility] under the hospitalist service for planned chemotherapy treatment for her relapsing non-Hodgkin's lymphoma. She was diagnosed in March 2008 and underwent treatment in 2008. Unfortunately in May 2016, she was found to have a lump in her right upper extremity which revealed follicular lymphoma grade 3. She received Rituximab on 08/19/2016, and did have Etoposide on 08/21/2016. She was placed in observation for hydration and further chemotherapy as well as monitoring of symptoms. For complete details of the H&P, refer to that document. LABORATORY UA reveals trace blood. On 08/23/2016 white blood count was 6.8, with hemoglobin 14.4, hematocrit 33.9, MCV 96.3, and platelets 269,000, 93% neutrophils are noted. Serum sodium is 144, with potassium 3.5, chloride 109, CO2 24, BUN 17, creatinine 0.7, GFR 82, and blood glucose 143. Transaminases are unremarkable. Magnesium is 2.2 with phosphorus 2.5 and calcium 8.5. Uric acid is normal at 4.4. HOSPITAL COURSE Patient was placed in outpatient observation status at [facility] under the care of Dr. Nieto. Dr. Raphael/Dr. Perdomo were consulted for oncological management of patient's chemotherapy. We did initiate IV fluids for hydration. SCDs were initiated for DVT prophylaxis. Chemotherapy was initiated for oncology recommendation. Overall she did tolerate the chemotherapy well. Lab was monitored and we did not see any evidence of hematuria. Hemoglobin was 11.4 on 08/23/2016. Uric acid was not showing elevation. Respiratory status did well. Blood pressure showed some slight elevation but likely this is due to IV fluids provided as she was urinating frequently secondary to fluids but not having urinary discomfort. Following chemotherapy she was able to be discharged to home. She will need to present to [facility] on 08/24/2016 for a Neupogen injection. NARRATIVE DISCLAIMER: Above narrative is a brief summary of the patient's hospitalization. For complete details of the hospital course, refer to the medical record. DISCHARGE CONDITION Stable/good. DIET Low sodium. ACTIVITIES As tolerated. MEDICATIONS Tylenol 325 mg one to two every 4 hours p.r.n. pain. Aspirin 81 mg daily. Calcium 600 mg with vitamin D daily. Clonidine 0.3 mg twice daily. Dicyclomine 10 mg 4 times daily p.r.n. Diltiazem 90 mg twice daily. Colace 250 mg daily p.r.n. Alaway one drop both eyes twice daily. Multivitamin daily. Omeprazole 40 mg twice daily. Zantac 150 mg twice daily. Venlafaxine ER 75 mg at bedtime. FOLLOWUP Patient will have Neupogen provided at [facility] on 08/24/2016. Patient will follow with Dr. Raphael on 09/04/2016 for laboratory and reevaluation. INSTRUCTIONS TO PATIENT Patient was instructed on her diagnoses and treatments provided. Risks versus benefits versus alternative therapy to chemotherapy was discussed by Dr. Raphael. She was encouraged to be adherent with medications. I encouraged her on a healthy, well-rounded diet and activities. I encouraged her on good fluid intake. Should problems or need occur, she will be in contact with Dr. Raphael. If symptoms become quite dire, she can present to the emergency room for acute evaluation. She voiced understanding of the above. Time spent with discharge greater than 30 minutes. MTDD
== END 2016-08-23 22:08 | disposition home or self-care (01) ==
LOC: MED 08:10
PROVIDERS: ADMIT Internal Medicine Medical Oncology; ATTEND Hospitalist
DX: Z51.11 Encounter for antineoplastic chemotherapy (principal); C82.24 Follicular lymphoma grade III, unspecified, lymph nodes of axilla and upper limb; M79.7 Fibromyalgia; M41.9 Scoliosis, unspecified; G89.29 Other chronic pain; K58.9 Irritable bowel syndrome, unspecified; K57.30 Diverticulosis of large intestine without perforation or abscess without bleeding; M13.0 Polyarthritis, unspecified; Z79.899 Other long term (current) drug therapy; E66.9 Obesity, unspecified; Z68.38 Body mass index [BMI] 38.0-38.9, adult; K21.9 Gastro-esophageal reflux disease without esophagitis; J45.909 Unspecified asthma, uncomplicated; Z79.82 Long term (current) use of aspirin
CPT/HCPCS: 80053; 81003; 83615; 83735; 84100; 84550; 85025; 96365; 96366; 96367; 96375; 96413; 96415; 96417; A9270; G0378; G0379; J1100; J1453; J1642; J2469; J7030; J7050; J7070; J9045; J9181; J9208; 99218

== ENCOUNTER 2016-09-05 08:04 | Observation (INO) | payer MEDICARE, OTHER ==
[~2016-09-05] VITALS: Ht 147.3 cm; Wt 81.0 kg
[~2016-09-05 08:04] MED LIST changes: +ACET-2321 PO; +ASPI-557 PO; +CALC1TAB PO; +DICY10CA13 PO; -DICY20TA PO; +DILT90CA PO; +DOCU250C77 PO; +KETO10DR3 BOTH EYES; +MULT-933 PO; -ONDA4TAB PO; +VENL-68 PO
--- OUTSIDE RECORDS SUMMARY | 2016-09-05 08:28 | XMS REPORT | Continuity of Care Document ---
Author Author [facility] Organization [facility] Address Unknown Phone Unavailable Care Team Providers Care Merchandise Carrier Name Role Phone Primary Care Physician Unavailable Source Comments Some departments are not documenting in the electronic medical record. If you do not see the information that you expected, contact Release of Information in the Health Information Management department at [phone] for further assistance in locating additional records.[facility] Active Allergies and Adverse Reactions Not on [...]
--- OUTSIDE RECORDS SUMMARY | 2016-09-05 08:28 | XMS REPORT | Continuity of Care Document ---
Author Author [facility] Organization [facility] Address Unknown Phone Unavailable Support Name Relationship Address Phone KARTHIKEYAN GILLETTE MD Caregiver [address] [place] [address] Unavailable SUE TURCIOS MD Caregiver [address] [place] [address] Unavailable GABY CHAPMAN Next Of Kin [address] [place] [address] Insurance Providers Guarantor Sudha Chapman Address [address] [place] [address] Email [email or web address] Payer Medicare Policy Number [id number] Subscriber's Name Sudha Chapman Relationship 18 Self Payer [facility] [facility] Policy Number [id number] Subscriber's Name Sudha Chapman Relationship 18 Self Group Number [id number] Advance Directives Directive Response Recorded Date/Time Ordered Resuscitation Status Limited Code 08/22/16 10:55am Resuscitation Documents on File No 08/22/16 9:37am DPOA for Healthcare Only Y : GABY 08/22/16 1:25pm Living Will Yes 08/22/16 9:37am Problems Active Problems Medical Problem Onset Date Status Chronic back pain Unknown Chronic Diverticulosis Unknown Chronic Encounter for chemotherapy management Unknown Fibromyalgia Unknown Chronic Hypokalemia Unknown Acute Lymphoma Unknown Acute Obesity (BMI 30-39.9) Unknown Chronic Polyarthritis Unknown Chronic Scoliosis Unknown Chronic Spastic colon Unknown Chronic Medications Current Home Medications Medication Dose Units Route Directions Days Qty Instructions Start Date Acetaminophen (Tylenol) 325 Mg Tablet 325-650 Mg Oral Every 4 Hours as needed for Pain 08/22/16 Aspirin (Aspir 81) 81 Mg Tablet. 81 Mg Oral Daily 08/22/16 Calcium Carbonate/Vitamin D3 (Caltrate 600 + D Tablet) 1 Each Tablet 1 Tab Oral Daily as needed for Prn Orders 08/22/16 Clonidine Hcl 0.3 Mg Tablet 0.3 Mg Oral Twice A Day 01/24/11 Dicyclomine Hcl 10 Mg Capsule 10 Mg Oral Four Times Daily as needed for Prn Orders 08/22/16 Diltiazem Hcl (Diltiazem Er) 90 Mg Cap.er.12h 90 Mg Oral Every 12 Hours 08/22/16 Docusate Sodium 250 Mg Capsule 250 Mg Oral Daily as needed for Constipation 08/22/16 Ketotifen Fumarate (Alaway) 10 Ml Drops 1 Drop Both Eyes Twice A Day 08/22/16 Multivitamin (Multi-Day Vitamins) 1 Each Tablet 1 Tab Oral Daily 08/22/16 Omeprazole (Prilosec) 40 Mg Capsule.dr 40 Mg Oral Twice A Day 26/03 Ranitidine Hcl (Zantac) 150 Mg Capsule 150 Mg Oral Twice A Day Venlafaxine Hcl (Venlafaxine Hcl Er) 75 Mg Cap.er.24h 75 Mg Oral Bedtime 08/22/16 Social History Social History Problem Response Recorded Date/Time Onset Date Status Reason for Hospitalization Lymphoma chemotherapy 08/23/2016 7:53pm Not Applicable Not Applicable Hx Substance Use No 04/04/2011 3:30pm Not Applicable Not Applicable Hx Alcohol Use Y rare 04/04/2011 3:30pm Not Applicable Not Applicable Has the pt used tobacco in the last 12 months No 08/22/2016 9:39am Not Applicable Not Applicable Query Response Start Date Stop Date Smoking Status Never smoker Hospital Discharge Instructions Instructions: Care Instructions: Reason for Hospitalization: Lymphoma chemotherapy I was in the hospital because (patient own words): "TO GET EXTENDED AND INTENSIVE CHEMO TREATMENT" Discharge Diet: Regular Discharge Activity: As tolerated Follow Up Appointments: [facility] on Sat 08/24 Dr Turcios on 09/04 Pending Lab / Results: No Pending Lab Wound/Incision Care: n/a Pain Scale Utilized to Educate Patient: 0-10 Pain Scale Pain Management/Treatment: Tylenol as needed Expected Signs/Symptoms: Urinary frequency to decrease as you body excretes fluids given for chemo. Notify Physician If: Temp >100.4. Increased confusion, difficulty writting. Blood in urine or stools. During Business Hours:: Please call the physician's office at After Business Hours:: Please call [phone] and have the wringer machine operator page the physician. Condition at time of discharge: Good Plan of Care Discharge Date 08/23/16 10:08pm Disposition 01 DISCHARGED HOME, SELF-CARE Instructions/Education Provided Non-Hodgkin Lymphoma (DC) Prescriptions See Medication Section Care Plan and Goals See Discharge Instructions Section Functional Status Query Response Date Recorded Mobility Status Ambulatory August 23, 2016 7:53pm Assistive Devices None August 23, 2016 7:53pm Activity Limitations Fatigue August 23, 2016 7:53pm Feeding Ability Independent August 23, 2016 7:53pm Toileting Ability Independent August 23, 2016 7:53pm Grooming Ability Independent August 23, 2016 7:53pm Dressing Ability Independent August 23, 2016 7:53pm Driving Ability Independent August 23, 2016 7:53pm Housework Ability Independent August 23, 2016 7:53pm Meal Preparation Ability Independent August 23, 2016 7:53pm Stair Climbing Ability Independent August 23, 2016 7:53pm Ability to complete ADL's impeded by No change August 23, 2016 7:53pm Cognitive/Perceptual Impairments Impaired vision August 23, 2016 7:53pm Visual Assistive Devices Contacts August 22, 2016 9:26am Allergies, Adverse Reactions, Alerts No known allergies. Immunizations Query Response on File Recorded Date/Time Hx Influenza Vaccination Y current 08/22/16 9:39am Hx Pneumococcal Vaccination Y current 08/22/16 9:39am Hx Influenza Vaccination Y current 08/22/16 9:39am Influenza Vaccine Hx JAN 2016 08/22/16 4:27pm Vital Signs Acute Vital Signs Vital Response Date/Time Temperature (Fahrenheit) 97.8 deg F (96.8 - 99.1) 08/23/2016 4:05pm Temperature (Calculated Celsius) 36.71090 degrees C (36.0 - 37.3) 08/23/2016 4:05pm Pulse Rate (adult) 58 bpm (60 - 100) 08/23/2016 4:05pm Respiratory Rate 14 breaths/min (10 - 20) 08/23/2016 4:05pm O2 Sat by Pulse Oximetry 96 % (90 - 100) 08/23/2016 4:05pm Oxygen Delivery Method Room Air 08/23/2016 4:05pm Blood Pressure 159/87 mm Hg 08/23/2016 4:05pm Blood Pressure Source Automatic Cuff 08/23/2016 4:05pm Height (Feet) 4 feet 08/23/2016 4:23pm Height (Inches) 10.00 inches 08/23/2016 4:23pm Weight (Kilograms) 83.900 kg 08/23/2016 7:39am Body Mass Index (BMI) 37.1 08/22/2016 9:35am Results Laboratory Results Test Name Result Units Flags Reference Collection Date/Time Result Date/ Time Comments Neutrophils (%) (Auto) 67.5 % H 33-66 08/19/2016 8:34a08/19/2016 9: 02am Lymphocytes (%) (Auto) 22.5 % L 23-45 08/19/2016 8:08/19/2016 9: 02am Monocytes (%) (Auto) 7.5 % 0-9.0 08/19/2016 8:08/19/2016 9:02am Eosinophils (%) (Auto) 2.0 % 0-4 08/19/2016 8: 08/19/2016 9:02am Basophils (%) (Auto) 0.5 % 0-2 08/19/2016 8: 08/19/2016 9:02am Immature Granulocyte % (Auto) 0.0 % 0.0-0.5 08/19/2016 8:2016 9:02am Absolute Neutrophils (auto) 3.8 T/MM3 1.8-7.7 08/19/2016 8: 2016 9:02am Absolute Lymphocytes (auto) 1.3 T/MM3 1-4.8 08/19/2016 8: 2016 9:02am Absolute Monocytes (auto) 0.4 T/MM3 0-0.8 08/19/2016 8: 08/19/2016 9:02am Absolute Eosinophils (auto) 0.1 T/MM3 0-0.5 08/19/2016 8: 2016 9:02am Absolute Basophils (auto) 0.0 T/MM3 0-0.2 08/19/2016 8: 08/19/2016 9:02am Absolute Immature Granulocyte (auto 0.00 T/MM3 0.00-0.03 08/19/2016 8: 34a 08/19/2016 9:02am White Blood Count 6.8 T/MM3 4.5-11.0 08/23/2016 4:44am 08/23/2016 5: 26am Red Blood Count 3.52 M/MM3 L 4.00-5.20 08/23/2016 4:44am 08/23/2016 5: 26am Hemoglobin 11.4 GM/DL L 12-16 08/23/2016 4:44am 08/23/2016 5:26am Hematocrit 33.9 % L 36-46 08/23/2016 4:44am 08/23/2016 5:26am Mean Corpuscular Volume 96.3 UM3 80-100 08/23/2016 4:44am 08/23/2016 5: 26am Mean Corpuscular Hemoglobin 32.4 UUG 26-34 08/23/2016 4:44am 2016 5:26am Mean Corpuscular Hemoglobin Concent 33.6 GM/DL 31-37 08/23/2016 4:44am 08/23/2016 5:26am RDW Standard Deviation 44.5 FL 36.9-50.2 08/23/2016 4:44am 08/23/2016 5 :26am Platelet Count 269 T/MM3 130-400 08/23/2016 4:44am 08/23/2016 5:26am Mean Platelet Volume 9.6 UM3 9.4-12.4 08/23/2016 4:44am 08/23/2016 5: 26am Neutrophils % (Manual) 93.0 % H 33-66 08/23/2016 4:44am 08/23/2016 6: 15am Lymphocytes % (Manual) 6.0 % L 23-45 08/23/2016 4:44am 08/23/2016 6: 15am Monocytes % (Manual) 1.0 % 0-9.0 08/23/2016 4:44am 08/23/2016 6:15am Absolute Neutrophils (Manual) 6.3 T/MM3 1.8-7.7 08/23/2016 4:44am 08/23 6:15am Lymphocytes # (Manual) 0.4 T/MM3 L 1-4.8 08/23/2016 4:44am 08/23/2016 6: 15am Monocytes # (Manual) 0.1 T/MM3 0-0.8 08/23/2016 4:44am 08/23/2016 6: 15am Red Cell Morphology Comment NORMAL 08/23/2016 4:44am 08/23/2016 6: 15am Icterus Index < 2 0-7 08/23/2016 4:44am 08/23/2016 5:29am Chemistry Specimen Hemolysis < 15 0-25 08/23/2016 4:44am 08/23/2016 5 :29am 0-25: Specimen Exhibited No Hemolysis. Turbidity < 20 0-20 08/23/2016 4:44am 08/23/2016 5:29am Sodium Level 144 MEQ/L 134-144 08/23/2016 4:44am 08/23/2016 5:29am Potassium Level 3.5 MEQ/L L 3.6-5 08/23/2016 4:44am 08/23/2016 5:29am Chloride Level 109 MEQ/L H 98-107 08/23/2016 4:44am 08/23/2016 5:29am Carbon Dioxide Level 24 MEQ/L 22-30 08/23/2016 4:44am 08/23/2016 5: 29am Anion Gap 11 MEQ/L 5-15 08/23/2016 4:44am 08/23/2016 5:29am Blood Urea Nitrogen 17.0 MG/DL 7-08/23/2016 4:44am 08/23/2016 5: 29am Creatinine 0.7 MG/DL 0.7-1.2 08/23/2016 4:44am 08/23/2016 5:29am BUN/Creatinine Ratio 24 RATIO 6-26 08/23/2016 4:44am 08/23/2016 5:29am Glomerular Filtration Rate Calc 82 08/23/2016 4:44am 08/23/2016 5: 29am Glucose Level 143 MG/DL H 65-110 08/23/2016 4:44am 08/23/2016 5:29am Calculated Osmolality 281 MOSM/KG H 261-280 08/23/2016 4:44am 2016 5:29am Calcium Level 8.5 MG/DL 8.4-10.2 08/23/2016 4:44am 08/23/2016 5:29am Phosphorus Level 2.5 MG/DL 2.5-4.5 08/23/2016 4:44am 08/23/2016 5:29am Total Bilirubin 0.60 MG/DL 0.20-1.30 08/23/2016 4:44am 08/23/2016 5: 29am Alkaline Phosphatase 45 U/L 38-126 08/23/2016 4:44am 08/23/2016 5:29am Total Protein 6.1 G/DL L 6.3-8.2 08/23/2016 4:44am 08/23/2016 5:29am Albumin 3.3 G/DL L 3.5-5.0 08/23/2016 4:44am 08/23/2016 5:29am Globulin 2.8 G/DL 2.4-3.6 08/23/2016 4:44am 08/23/2016 5:29am Albumin/Globulin Ratio 1.2 RATIO 1.1-2.2 08/23/2016 4:44am 08/23/2016 5 :29am Aspartate Amino Transf (AST/SGOT) 18 U/L 14-36 08/23/2016 4:44am 2016 5:29am Alanine Aminotransferase (ALT/SGPT) 20 U/L 9-52 08/23/2016 4:44am 08/23 5:29am Lactate Dehydrogenase 282 U/L L 313-618 08/23/2016 4:44am 08/23/2016 5: 29am Magnesium Level 2.2 MG/DL 1.6-2.3 08/23/2016 4:44am 08/23/2016 5:29am Uric Acid 4.4 MG/DL 2.5-7.5 08/23/2016 4:44am 08/23/2016 5:29am Urine Collection Type CLEANCATCH-MIDSTREAM 08/23/2016 6:32pm 2016 6:38pm Urine Color YELLOW YELLOW 08/23/2016 6:32pm 08/23/2016 6:38pm Urine Turbidity CLEAR CLEAR 08/23/2016 6:32pm 08/23/2016 6:38pm Urine Specific [place] 1.010 L 1.015-1.025 08/23/2016 6:32pm 2016 6:38pm Urine pH 5.5 5.0-8.0 08/23/2016 6:32pm 08/23/2016 6:38pm Urine Leukocyte Esterase NEGATIVE NEGATIVE 08/23/2016 6:32pm 2016 6:38pm Urine Nitrite NEGATIVE NEGATIVE 08/23/2016 6:32pm 08/23/2016 6:38pm Urine Protein NEGATIVE NEGATIVE 08/23/2016 6:32pm 08/23/2016 6:38pm Urine Glucose (UA) NEGATIVE NEGATIVE 08/23/2016 6:32pm 08/23/2016 6: 38pm Urine Ketones 3+ A NEGATIVE 08/23/2016 6:32pm 08/23/2016 6:38pm Urine Urobilinogen 0.2 EU/DL NORMAL 08/23/2016 6:32pm 08/23/2016 6: 38pm Urine Bilirubin NEGATIVE NEGATIVE 08/23/2016 6:32pm 08/23/2016 6: 38pm Urine Blood NEGATIVE NEGATIVE 08/23/2016 6:32pm 08/23/2016 6:38pm Urinalysis Comment MICROSCOPIC NOT IND. 08/23/2016 6:32pm 2016 6:38pm Procedures No known history of procedures. Encounters Encounter Location Arrival/Admit Date Discharge/Depart Date Attending Provider Discharged Inpatient (obs) [facility] 08/22/16 8:10am 08/23/16 10 :08pm KARTHIKEYAN GILLETTE MD Registered Recurring [facility] 08/19/16 8:57am SUE TURCIOS MD
--- OUTSIDE RECORDS SUMMARY | 2016-09-05 08:28 | XMS REPORT | Continuity of Care Document ---
Author Author [facility] Address [address] [place] [address] Care Team Providers Care Invoice Classification Clerk Name Role Phone MandaRaisaVijaya K Unavailable [phone] Insurance Providers Payer Name Policy Number Subscriber Name Relationship Medicare [id number] [employer] PATIENT/SELF [employer] [id number] [place] [place] PATIENT/SELF Advance Directives Directive Response [...] MG BY MOUTH DAILY Hydrocodone 5MG/Acet 325MG ([place] 5-325 Tablet) 1 EACH TABLET 1 TAB BY MOUTH EVERY 4 HOURS NEEDED PRN PAIN TAKE ONE BY MOUTH EVERY 4 HOURS NEEDED FOR PAIN. DO NOT TAKE EXTRATYLENOL PRODUCTS WHILE ON THIS MEDICATION. Ibuprofen 400 MG TABLET 400 MG BY MOUTH as needed PRN PAIN NONE SINCE Ketotifen Fumarate ([place]away) 10 ML DROPS 1 DROP BOTH EYES TWICE DAILY [place]-3 Fatty Acids (Fish Oil) 1,200 MG CAP [...] LYMPH NODES Completed 07/10/16 Tavo Cervantes DO INSERT TUNNELED CV CATH Completed 08/14/16 Tavo Cervantes DO Encounters Encounter Location Arrival/Admit Date Discharge/Depart Date Attending Provider Departed [facility] 08/14/16 0:21am 08/14/16 10:35am Tavo Cervantes DO Discharged [facility] 08/07/16 11:26am 09/01/16 3: 49am Fabio Zamudio MD Registered [facility] 07/16/16 1:07pm Fabio Zamudio MD Departed Surgical Day [facility] 07/10/16 0:37am 07/10/16 12:00pm Tavo Cervantes DO Registered [facility] 07/05/16 12:56pm Fabio Zamudio MD Registered [facility] 07/05/16 8:04am Tavo Cervantes DO Registered [facility] 07/02/16 7:27am Fabio Zamudio MD
[2016-09-05 08:56] VITALS: Ht 147.3 cm; Wt 81.0 kg
[2016-09-05 08:58] VITALS: BP 149/79; PULSE 93; RESP 18; TEMP 96.9; O2SAT 97
[2016-09-05] MEDS ORDERED: HYDROCORTISONE 100mg/2ml Injection IV PRN (09:15)
[2016-09-05] MEDS ORDERED: DEXAMETHASONE 10 MG in NORMAL SALINE 50 ML IV ONE ×2 (09:15→09:45)
[2016-09-05] MEDS ORDERED: DiphenhydrAMINE 50 MG/ML INJECTION IV PRN (09:30)
[2016-09-05] MEDS ORDERED: PALONOSETRON 0.25mg/5ml INJECTION IV ONE (09:45)
[2016-09-05] MEDS ORDERED: FOSAPREPITANT IV ONE (10:00)
[2016-09-05] MEDS ORDERED: NORMAL SALINE IV ONE ×4 (10:00→15:15)
--- NOTE | 2016-09-05 10:00 | NUR ---
admit Pt to room 0830, V/S taken and stable on RA. PAC accessed, flushes and aspirates well. N.O. from [facility], starting pre meds.
[2016-09-05] MEDS: NORMAL SALINE 1,000 ML IV SCH ×2 (10:13→18:06)
[2016-09-05] MEDS ORDERED: ETOPOSIDE IV ONE (10:45)
[2016-09-05] MEDS ORDERED: SENNA + DOCUSATE TAB PO PRN (10:45)
[2016-09-05] MEDS ORDERED: MILK OF MAGNESIA 30 ML SUSP PO PRN (10:45)
[2016-09-05] MEDS ORDERED: CALCIUM 600mg + VIT D 400 TABLET PO PRN (10:45)
[2016-09-05] MEDS ORDERED: DICYCLOMINE 10 MG CAPSULE PO PRN (10:45)
[2016-09-05] MEDS ORDERED: ACETAMINOPHEN 325 MG TABLET PO PRN (10:45)
[2016-09-05] MEDS ORDERED: ONDANSETRON 4mg/2ml INJECTION IV PRN (10:45)
--- NOTE | 2016-09-05 10:59 | HPPDOC ---
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 She was admitted on [facility] on 08/22/16 for ifosfamide plus carboplatin plus etoposide due to risk for acute renal injury, hematuria, and potential neurological toxicity. She reports that she did have some microscopic hematuria following last hospital course, but no visible blood. She has been in relatively good health recently. She has a hx of hand tremors and takes Clonidine 0.3 mg BID for this, but her BP dropped to 90-100/ 60s during her last hospital stay for chemo so Dr. Raphael had her reduce the dose to once a day starting on 09/04/16. She feels a bit weak and dizzy when her bp is low, and she has learned to change positions slowly. She denies feeling weak or dizzy with the chemo. She denies any recent illness such as fever or chills, cough or congestion, n/v/d. She has had 3 soft bowel movements today, but notes she didn't have any yesterday and this is her typical pattern. Appetite has been good and she reports that overall she's been gaining weight. She reports nocturia, especially while on chemo but denies any dysuria. She denies paresthesias or oral sores. She denies any leg swelling or chest pain. She notes a hx of an occasional irregular heartbeat, but doesn't believe it's atrial fib. Her green chain offbearer is Dr. Omalley. Past Medical History Past Medical History History of lymphoma-2007 "Leaky heart valve" Spastic colon Diverticulosis Fibromyalgia Scoliosis Spinal stenosis Polyarthritis. GERD Asthma Rectovaginal fistula Surgical History Patient's Surgical History: Port-A-Cath placement-08/14/16 Tonsillectomy Exploratory Lap 1977 [id number] Bilateral bunionectomy-2010 Left rotator cuff repair Left knee replacement Colorectal surgery for rectovaginal fistula repair Bladder tuck Current Medications Home Meds Reported Medications Aspirin (Aspir 81) 81 Mg Tablet.dr, 81 MG PO DAILY 08/22/16 Dicyclomine HCl (Dicyclomine HCl) 10 Mg Capsule, 10 MG PO QID Y for PRN ORDERS 08/22/16 Diltiazem HCl (Diltiazem ER) 90 Mg Cap.er.12h, 90 MG PO Q12HR 08/22/16 Venlafaxine HCl (Venlafaxine HCl ER) 75 Mg Cap.er.24h, 75 MG PO HS 08/22/16 Multivitamin (Multi-Day Vitamins) 1 Each Tablet, 1 TAB PO DAILY 08/22/16 Calcium Carbonate/Vitamin D3 (Caltrate 600 + D Tablet) 1 Each Tablet, 1 TAB PO DAILY Y for PRN ORDERS 08/22/16 Acetaminophen (Tylenol) 325 Mg Tablet, 325-650 MG PO Q4HR Y for PAIN 08/22/16 Omeprazole (Prilosec) 40 Mg Capsule.dr, 40 MG PO BID 01/24/11 Clonidine Hcl (Clonidine Hcl) 0.3 Mg Tablet, 0.3 MG PO DAILY 01/24/11 Allergies: Coded Allergies: No Known Allergies (Unverified , 01/24/11) Family History Family History: Father- Deseased at age 53 from [place] (also had Brain Tumor) Multiple family menters wt breast cancer, Colorectal cancer, bladder cancer, Prostrate Cancer, Thyroid cancer Sister and mother had benign tremors Social History Smoking Status: Never smoker Substance Use Type: does not use Marital Status: Current Occupational Status: retired 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 - [employer] Advance Directives: No DPOA for Healthcare Only Review of Systems Constitutional: REPORTS: dizziness, weakness, weight gain, DENIES: appetite decrease, chills, fever Eyes Vision: DENIES: vision changes ENMT Sinuses: NOT FOUND: congestion, rhinorrhea Mouth/Throat: DENIES: change in swallowing, painful swallowing Cardiovascular DENIES: chest pain, dyspnea on exertion Vascular: DENIES: pedal edema Pulmonary Respiratory: DENIES: cough, dyspnea GI Upper Abdomen: DENIES: nausea, pain, vomiting Lower Abdomen: DENIES: constipation, diarrhea General: hematuria, nocturia, see HPI, DENIES: dysuria Musculoskeletal Lumbar: other (chronic back pain from scoliosis) Integumentary Skin: DENIES: rash Neurological General: DENIES: headache, memory disturbances, numbness, seizures, syncope, tingling, weakness Psychiatric Psychiatric: DENIES: depression Allergic/Immunological DENIES: frequent infections All Other Systems All Other Systems: Reviewed (remainder of 10-point ROS Neg.) Physical Exam General General Nourishment: well nourished, well developed Vital Signs Vital Signs Date Time Temp Pulse Resp B/P Pulse Ox O2 Delivery O2 Flow Rate FiO2 09/05/16 08:58 96.9 93 18 149/79 97 Room Air Height (Feet): 4 Height (Inches): 10.00 Eyes Brief: FOUND: PERRL, NOT FOUND: scleral icterus ENMT Brief: FOUND: mucosa moist, NOT FOUND: lesions, pharnyx erythema Neck Brief: NOT FOUND: adenopathy, nuchal rigidity Respiratory Auscultation: FOUND: normal, NOT FOUND: rales, rhonchi, wheezes Cardiovascular Auscultation: FOUND: S1, S2, regular Peripheral Pulses: 2+: Dorasalis Pedis (L), Dorsalis Pedis (R), Posterior Tibial (L), Posterior Tibial (R), Radial (L), Radial (R) Edema: 0: Anasarca, Arm (L), Arm (R), Face, Leg (L), Leg (R) Abdomen Inspection: NOT FOUND: distention Palpation: FOUND: soft, NOT FOUND: involuntary guarding, rebound, tender, voluntary guarding Auscultation: FOUND: normo active Lymphatic (brief) Lymphatic Brief: NOT FOUND: adenopathy Musculoskeletal (brief) Musculoskeletal Brief: FOUND: deformity (scoliosis deformity to thoracic spine) Integumentary (brief) Integumentary Brief: FOUND: dry, pink, warm Integumentary General: FOUND: dry, warm Color: FOUND: pink Neurologic (brief) Neurological Brief: FOUND: cranial 2-12 intact (grossly) Neurologic GCS Eye Opening: (4)Spontaneous GCS Verbal: (5)Oriented GCS Motor: (6)Obeys Commands RN Documented GCS Total:15 Psychiatric (brief) FOUND: alert, attentive, normal affect, oriented Assessment & Plan Problems: (1) Encounter for chemotherapy management (2) Scoliosis Status: Chronic (3) Fibromyalgia Status: Chronic (4) Lymphoma Status: Acute (5) Spastic colon Status: Chronic (6) Diverticulosis Status: Chronic (7) Polyarthritis Status: Chronic (8) Chronic back pain Status: Chronic (9) Obesity (BMI 30-39.9) Status: Chronic (10) Hx of lymphoma Onset Date: ~ 2007 Status: Chronic (11) GERD (gastroesophageal reflux disease) Status: Chronic (12) Asthma Status: Chronic (13) Rectovaginal fistula Status: Chronic (14) Spinal stenosis Status: Chronic (15) Leaky heart valve Status: Chronic Plan/Intensity of Service Admit d/t high risk of acute renal injury, hematuria, and potential neurological toxicity with chemo. Attending: Dr. Nieto. Consult Dr. Raphael. Hx of hypotension after last round of chemo, hx of "irreg HR" - monitor on tele , request records from Dr. Omalley's office. Clonidine dose has already been reduced from BID to once daily. Pt does not want to stop this entirely, nor does she want to stop diltiazem. She also had some nervousness with the steroids last time - may need to treat with anxiolytics if BP tolerates. BP was elevated on admission. R-ICE chemotherapy with close monitoring of renal, neurological function, and CBC - per Dr. Raphael. NS ordered for hydration. Labs reviewed from 09/02/16 - WBC 14.6, hgb 12.1, Plt 141, bands 17%; Na 146, K 4.1, CO2 27, BUN 13, Cr 0.8, Phos 2.5, Mg 2.2, LFTs nml, LDH 730. Discussed with Dr. Nieto. DVT Prophylaxis: SCD'S Code Status Hospital Course Summary Disclaimer The hospital course summary below is not to be considered part of the above Progress Note. Hospital Course Summary 09/05/16 Admit d/t high risk of acute renal injury, hematuria, and potential neurological toxicity with chemo. Attending: Dr. Nieto. Consult Dr. Raphael. Hx of hypotension after last round of chemo, hx of "irreg HR" - monitor on tele , request records from Dr. Omalley's office. Clonidine dose has already been reduced from BID to once daily. Pt does not want to stop this entirely, nor does she want to stop diltiazem. She also had some nervousness with the steroids last time - may need to treat with anxiolytics if BP tolerates. BP was elevated on admission. R-ICE chemotherapy with close monitoring of renal, neurological function, and CBC - per Dr. Raphael. NS ordered for hydration. Labs reviewed from 09/02/16 - WBC 14.6, hgb 12.1, Plt 141, bands 17%; Na 146, K 4.1, CO2 27, BUN 13, Cr 0.8, Phos 2.5, Mg 2.2, LFTs nml, LDH 730. KARTHIKEYAN NIETO MD 09/05/16 1137: Past Medical History Current Medications Home Meds Reported Medications Aspirin (Aspir 81) 81 Mg Tablet.dr, 81 MG PO DAILY 08/22/16 Dicyclomine HCl (Dicyclomine HCl) 10 Mg Capsule, 10 MG PO QID Y for PRN ORDERS 08/22/16 Diltiazem HCl (Diltiazem ER) 90 Mg Cap.er.12h, 90 MG PO Q12HR 08/22/16 Venlafaxine HCl (Venlafaxine HCl ER) 75 Mg Cap.er.24h, 75 MG PO HS 08/22/16 Multivitamin (Multi-Day Vitamins) 1 Each Tablet, 1 TAB PO DAILY 08/22/16 Calcium Carbonate/Vitamin D3 (Caltrate 600 + D Tablet) 1 Each Tablet, 1 TAB PO DAILY Y for PRN ORDERS 08/22/16 Acetaminophen (Tylenol) 325 Mg Tablet, 325-650 MG PO Q4HR Y for PAIN 08/22/16 Omeprazole (Prilosec) 40 Mg Capsule.dr, 40 MG PO BID 01/24/11 Clonidine Hcl (Clonidine Hcl) 0.3 Mg Tablet, 0.3 MG PO DAILY 01/24/11 Allergies: Coded Allergies: No Known Allergies (Unverified , 01/24/11) Assessment & Plan Problems: (1) Encounter for chemotherapy management (2) Scoliosis Status: Chronic (3) Fibromyalgia Status: Chronic (4) Lymphoma Status: Acute (5) Spastic colon Status: Chronic (6) Diverticulosis Status: Chronic (7) Polyarthritis Status: Chronic (8) Chronic back pain Status: Chronic (9) Hx of lymphoma Onset Date: ~ 2007 Status: Chronic (10) GERD (gastroesophageal reflux disease) Status: Chronic (11) Asthma Status: Chronic (12) Rectovaginal fistula Status: Chronic (13) Spinal stenosis Status: Chronic (14) Leaky heart valve Status: Chronic (15) Obesity (BMI 30-39.9) Status: Chronic Plan/Intensity of Service Have independently interviewed and examined pt. Chart reviewed. Case discussed with my RUBBER STAMP MAKER. Above care plan developed with my supervision (Chemo as per oncology); agree with above. Doing well since last round of chemo. Not been sickly with infections-does avoid crowds and if has to be out will wear a mask. BP did get low-Catapres decreased. Having reflux so using omeprazole routinely-denies pain with swallow or food catching or sticking. Appetite stable. Weight stable. No mouth pain. Breathing well-no cough, congestion or SOA. No urinary problems. Lungs: clear CV: regular AB: soft nt/nd +BS MSE: awake alert appropriate Plan: OBS for Chemo therapy. Chemo as per ONC. Continue home medications. SCD for DVT prevention. IVF for hydration with chemo. Monitor lab. SHUBHAM GARCIA APRN September 05, 2016 10:33 KARTHIKEYAN NIETO MD September 05, 2016 11:37
[2016-09-05 12:00] VITALS: BP 147/83; PULSE 68; RESP 16; TEMP 97.1; O2SAT 94
[2016-09-05] MEDS ORDERED: NORMAL SALINE 500 ML IV PRN (12:00)
[2016-09-05] MEDS ORDERED: CARBOPLATIN IV ONE (12:00)
[2016-09-05] MEDS ORDERED: SODIUM BICARBONATE 100 MEQ in D5W 1,000 ML IV ONE (13:00)
[2016-09-05 13:18] VITALS: BP 145/86; PULSE 71; RESP 16; TEMP 97.3; O2SAT 92
[2016-09-05] MEDS: --POM--OMEPRAZOLE 20 MG CAPSULE PO SCH ×2 (13:24→20:00)
--- NOTE | 2016-09-05 13:28 | CONSPD ---
Consultation Info Date DATE: 09/05/16 TIME: 13: Date of Consultation: September 05, 2016 Attending Physician: Hesham Nieto M.D. Reason for Consultation: follicular lymphoma HPI - Adult Date DATE: 09/05/16 TIME: 13:26 General Chief Complaint: Chemo History of Present Illness 70 year old female, well known to Dr. Raphael with relapsed Non Hodgkins Lymphoma admitted to [facility] for continued chemotherapy and close follow up for toxicity. Denies fever, chills, night sweats. Had mild hypotension at home following 1st cycle of chemotherapy; medication adjustment made and has not had further issues.. She is eating and drinking normally. Normal voiding, normal BM today. See below for History of Present Illness: 70-year-old female with a history of stage IV, grade 3, follicular lymphoma involving the soft tissue, diagnosed in 03/2008. Bone marrow was negative. She was successfully treated with R-CHOPx6 from 2008 to 08/2008 followed by maintenance Rituxan from 04/2009 to 11/2010. She has been followed with serial scans and blood work. She has been in remission until May 2016 when she was found to have a lump in the right upper extremity. Ultrasound, revealed a 2.8 x 3.3 x 2.1 cm lesion located in the upper inner right arm. Excisional biopsy showed follicular lymphoma, grade 3A, as well as diffuse large B-cell lymphoma, germinal center B-cell subtype. The patient was thereafter referred to the [facility] /Dr. Jhonatan Pendleton. Her case was presented at their multidisciplinary lymphoma conference on 08/05/2016. Her imaging was reviewed, and it was noted that there was no definite area of increased SUV in the neck. It was assessed that the patient had a localized relapse that had already been excised. Different approaches to management, including radiation therapy, versus 3 cycles of R-ICE followed by radiation therapy, versus high-dose chemotherapy followed by stem cell rescue, were discussed as reasonable options going forward. Finally decided to treat her with 3 cycles of RICE followed by consolidation radiation therapy to the tumor bed in the right upper extremity. The patient completed 1 cycle of RICE without problems or complications 09/04/16: Started the second cycle with rituximab on Friday09/02/2016 without complications. She would be receiving etoposide today and admitted to the hospital for the rest of the chemotherapy tomorrow. She has no complaints. Lab: WBC 14.6 with ANC of 10.5 hemoglobin 12.1 platelets count 141,000. Chemistry unremarkable. Past Medical History Past Medical History History of lymphoma-2007 "Leaky heart valve" Spastic colon Diverticulosis Fibromyalgia Scoliosis Spinal stenosis Polyarthritis. GERD Asthma Rectovaginal fistula Surgical History Patient's Surgical History: Port-A-Cath placement-08/14/16 Tonsillectomy Exploratory Lap 1976 [id number] Bilateral bunionectomy-2010 Left rotator cuff repair Left knee replacement Colorectal surgery for rectovaginal fistula repair Bladder tuck Current Medications Home Meds Reported Medications Aspirin (Aspir 81) 81 Mg Tablet.dr, 81 MG PO DAILY 08/22/16 Dicyclomine HCl (Dicyclomine HCl) 10 Mg Capsule, 10 MG PO QID Y for PRN ORDERS 08/22/16 Diltiazem HCl (Diltiazem ER) 90 Mg Cap.er.12h, 90 MG PO Q12HR 08/22/16 Venlafaxine HCl (Venlafaxine HCl ER) 75 Mg Cap.er.24h, 75 MG PO HS 08/22/16 Multivitamin (Multi-Day Vitamins) 1 Each Tablet, 1 TAB PO DAILY 08/22/16 Calcium Carbonate/Vitamin D3 (Caltrate 600 + D Tablet) 1 Each Tablet, 1 TAB PO DAILY Y for PRN ORDERS 08/22/16 Acetaminophen (Tylenol) 325 Mg Tablet, 325-650 MG PO Q4HR Y for PAIN 08/22/16 Omeprazole (Prilosec) 40 Mg Capsule.dr, 40 MG PO BID 01/24/11 Clonidine Hcl (Clonidine Hcl) 0.3 Mg Tablet, 0.3 MG PO DAILY 01/24/11 Allergies: Coded Allergies: No Known Allergies (Unverified , 01/24/11) Family History Family History: Father- Deseased at age 53 from [place] (also had Brain Tumor) Multiple family menters wtih breast cancer, Colorectal cancer, bladder cancer, Prostrate Cancer, Thyroid cancer Sister and mother had benign tremors Social History Smoking Status: Never smoker Substance Use Type: does not use Marital Status: Current Occupational Status: retired 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 - [employer] Advance Directives: No DPOA for Healthcare Only Review of Systems Constitutional: DENIES: chills, fever, weight loss Eyes Vision: DENIES: double vision ENMT Mouth/Throat: DENIES: sore throat, sores Cardiovascular DENIES: chest pain, dyspnea on exertion Rhythm/Rate: DENIES: tachycardia GI Upper Abdomen: heartburn/indigestion, DENIES: nausea, vomiting General: DENIES: dysuria, frequency Musculoskeletal General: DENIES: cramps, joint pain, pain Neurological General: DENIES: headache, weakness Psychiatric Psychiatric: DENIES: depression, nervousness Endocrine DENIES: heat/cold intolerance Physical Exam General General Nourishment: well nourished, well developed, obese Vital Signs Vital Signs Date Time Temp Pulse Resp B/P Pulse Ox O2 Delivery O2 Flow Rate FiO2 09/05/16 13:18 97.3 71 16 145/86 92 Room Air Height (Feet): 4 Height (Inches): 10.00 Eyes Brief: FOUND: EOMI, NOT FOUND: scleral icterus ENMT Brief: FOUND: mucosa moist, NOT FOUND: pharnyx erythema Neck Brief: NOT FOUND: adenopathy, tenderness Respiratory Brief: FOUND: clear all mcgarry, NOT FOUND: wheezes Cardiovascular (brief) Cardiac Brief: FOUND: pedal edema (trace pedal), regular rate, regular rhythm Abdomen (brief) Abdominal Brief: FOUND: BS normo active x4, soft, NOT FOUND: hepatosplenomegaly Lymphatic (brief) Lymphatic Brief: NOT FOUND: adenopathy Musculoskeletal (brief) Musculoskeletal Brief: NOT FOUND: loss of motion, tenderness Integumentary (brief) Integumentary Brief: FOUND: dry, other (well healed incision right upper arm.) , warm, NOT FOUND: rash Neurologic (brief) Neurological Brief: FOUND: cranial 2-12 intact, NOT FOUND: motor Neurologic RN Documented GCS Eye Opening: (4)Spontaneous Verbal: (5)Oriented Motor: (6)Obeys Commands Total: Psychiatric (brief) FOUND: alert, attentive, normal affect, oriented Impression/Recommendation Impression 1. Relapsed non-Hodgkin's lymphoma, localized right upper extremity, status post excision. Current treatment R-ICE chemotherapy. Recommendation Continue R-ICE chemotherapy with close monitoring of renal, neurological function, and CBC. CHOLO WYATT APRN September 05, 2016 13:28
[2016-09-05 13:51] VITALS: O2SAT 92
[2016-09-05] MEDS ORDERED: IFOSFAMIDE IV ONE (15:15)
[2016-09-05] MEDS ORDERED: MESNA IV ONE (15:15)
[2016-09-05 16:00] VITALS: BP 146/85; PULSE 70; RESP 16; TEMP 97.2; O2SAT 95
--- NOTE | 2016-09-05 19:00 | NUR ---
status Pt A/O x3, V/S stable on RA. Pt ambulating well in room to bathroom. Urine output good for shift, no blood noted in urine, 3 BM today. Pt has no pain except for slight headache, denies need for PRN meds at this time. Chemo meds running most of the day, tolerating well, PAC flushing and aspirating well. Pt eating and drinking good, no N/V noted.
[2016-09-05 19:40] VITALS: BP 143/81; PULSE 70; RESP 18; TEMP 98; O2SAT 96
[2016-09-05] MEDS: DILTIAZEM 90 MG PO SCH (19:59)
[2016-09-05] MEDS: VENLAFAXINE 75 MG PO SCH (20:00)
[2016-09-06] MEDS: NORMAL SALINE 1,000 ML IV SCH ×3 (04:29→21:00)
[2016-09-06 04:44] VITALS: BP 153/92; PULSE 92; RESP 20; TEMP 96.4; O2SAT 96
[2016-09-06 05:35] LABS: HGB - HEMOGLOBIN 11.4 GM/DL (12-16); MEAN CORPUSCULAR HGB 31.7 UUG (26-34); MEAN CORPUSCULAR HGB CONC(MCHC 33.5 GM/DL (31-37); MEAN CORPUSCULAR VOLUME 94.4 UM3 (80-100); MEAN PLATELET VOLUME 10.4 UM3 (9.4-12.4); WBC - WHITE BLOOD COUNT 7.9 T/MM3 (4.5-11.0)
[2016-09-06 05:45] LABS: ALBUMIN 3.6 G/DL (3.5-5.0); ALBUMIN/GLOBULIN RATIO 1.2 RATIO (1.1-2.2); ALKALINE PHOSPHATASE 96 U/L (38-126); ALT (SGPT) 42 U/L (9-52); ANION GAP 12 MEQ/L (5-15); AST (SGOT) 27 U/L (14-36); BUN/CREATININE RATIO 28 RATIO (6-26); CALCIUM 8.8 MG/DL (8.4-10.2); CHLORIDE 106 MEQ/L (98-107); CO2 - CARBON DIOXIDE 26 MEQ/L (22-30); CREATININE 0.6 MG/DL (0.7-1.2); GLOMERULAR FILTRATION RATE 98; GLUCOSE 121 MG/DL (65-110); POTASSIUM 3.7 MEQ/L (3.6-5); SODIUM 144 MEQ/L (134-144); TOTAL PROTEIN 6.7 G/DL (6.3-8.2)
[2016-09-06 06:44] LABS: BAND NEUTROPHILS # 0.3 T/MM3; LYMPHOCYTES # (MANUAL) 0.6 T/MM3 (1-4.8); MONOCYTES # (MANUAL) 0.4 T/MM3 (0-0.8); NEUTROPHILS #(MANUAL)-ABSOLUTE 6.6 T/MM3 (1.8-7.7); TOTAL CELLS COUNTED 100 %
[2016-09-06 07:19] VITALS: BP 157/96; PULSE 78; RESP 18; TEMP 96.5; O2SAT 97
[2016-09-06] MEDS: DILTIAZEM 90 MG PO SCH ×2 (08:12→22:30)
[2016-09-06] MEDS: --POM--OMEPRAZOLE 20 MG CAPSULE PO SCH ×2 (08:12→22:30)
[2016-09-06] MEDS ORDERED: CLONIDINE 0.3 MG PO SCH (09:00)
[2016-09-06] MEDS ORDERED: --POM--ASPIRIN *EC* 81mg TABLET PO SCH (09:00)
[2016-09-06 12:00] VITALS: BP 142/82; PULSE 69; RESP 18; TEMP 96.7; O2SAT 98
--- NOTE | 2016-09-06 13:41 | NUR ---
CM CM IN TO VISIT WITH PT. CM EXPLAINED ROLE AND PROVIDED CONTACT INFORMATION. PT DENIES NEEDS AND IS AWARE TO CONTACT CM SHOULD NEEDS ARISE.
--- NOTE | 2016-09-06 13:42 | PNPDOC ---
CHOLO WYATT HEAD SCORER 09/06/16 1340: Subjective Date DATE: 09/06/16 TIME: 13:37 Reclining in hospital bed, alone in room. Pleasant affect. Her only complaint is mild increased swelling in legs. Denies shortness of air, chest pain, cough. She is eating and drinking normally. Normal voiding. Normal bowel movement yesterday. General: No fever, no night sweats Eyes: No redness, no pain, no diplopia ENT: No mouth sores, no trouble swallowing Cardiac: No chest pain no palpitations. Positive mild pedal edema Pulmonary: No cough, no shortness of breath, no wheezing Abdomen: No pain, no nausea vomiting, no diarrhea or constipation : No urgency, frequency, dysuria, or hematuria Musculoskeletal: No arthritis, no myalgias Neurological: No headaches, no focal weakness Skin: No rash, no sores Psychiatric: No anxiety, no depression Objective Vital Signs Vital Signs 09/06/16 09/06/16 09/06/16 04:44 07:19 12:00 Temp 96.4 96.5 96.7 Pulse 92 78 69 Resp 20 18 18 B/P 153/92 157/96 142/82 Pulse Ox 96 97 98 O2 Delivery Room Air Room Air Room Air Height (Feet): 4 Height (Inches): 10.00 Weight (Kilograms): 81.000 General Alert, Orientated x 3, No Acute Distress Eyes (Brief) Eyes: FOUND: EOMI, NOT FOUND: scleral icterus Neck (Brief) Neck: NOT FOUND: adenopathy, tenderness Respiratory (Brief) Respiratory: FOUND: clear all mcgarry, equal bilaterally, NOT FOUND: wheezes Cardiovascular (Brief) Cardiac: FOUND: pedal edema (trace pedal edema bilateral lower extremities), regular rate, regular rhythm, NOT FOUND: murmur Abdomen (Brief) Abdominal: FOUND: BS normo active x4, soft, NOT FOUND: distended Lymphatic (Brief) NOT FOUND: adenopathy Neurologic (Brief) FOUND: cranial 2-12 intact, NOT FOUND: motor (no acute motor deficit) Psychiatric (Brief) FOUND: alert, attentive, normal affect, oriented Laboratory Laboratory Tests Test 09/06/16 04:25 White Blood Count 7.9T/MM3 Red Blood Count 3.60M/MM3 Hemoglobin 11.4GM/DL Hematocrit 34.0% Mean Corpuscular Volume 94.4UM3 Mean Corpuscular Hemoglobin 31.7UUG Mean Corpuscular Hemoglobin Concent 33.5GM/DL RDW Standard Deviation 43.6FL Platelet Count 189T/MM3 Mean Platelet Volume 10.4UM3 Immature Granulocyte % (Auto) % Neutrophils (%) (Auto) % Lymphocytes (%) (Auto) % Monocytes (%) (Auto) % Eosinophils (%) (Auto) % Basophils (%) (Auto) % Absolute Immature Granulocyte (auto T/MM3 Absolute Neutrophils (auto) T/MM3 Absolute Lymphocytes (auto) T/MM3 Absolute Monocytes (auto) T/MM3 Absolute Eosinophils (auto) T/MM3 Absolute Basophils (auto) T/MM3 Neutrophils % (Manual) 84.0% Band Neutrophils % 4.0% Lymphocytes % (Manual) 7.0% Monocytes % (Manual) 5.0% Absolute Neutrophils (Manual) 6.6T/MM3 Band Neutrophils # 0.3T/MM3 Lymphocytes # (Manual) 0.6T/MM3 Monocytes # (Manual) 0.4T/MM3 Red Cell Morphology Comment Normal Turbidity < 20 Sodium Level 144MEQ/L Potassium Level 3.7MEQ/L Chloride Level 106MEQ/L Carbon Dioxide Level 26MEQ/L Anion Gap 12MEQ/L Blood Urea Nitrogen 17.0MG/DL Creatinine 0.6MG/DL Glomerular Filtration Rate Calc 98 BUN/Creatinine Ratio 28RATIO Glucose Level 121MG/DL Calculated Osmolality 280MOSM/KG Calcium Level 8.8MG/DL Total Bilirubin 0.30MG/DL Icterus Index < 2 Aspartate Amino Transf (AST/SGOT) 27U/L Alanine Aminotransferase (ALT/SGPT) 42U/L Alkaline Phosphatase 96U/L Total Protein 6.7G/DL Albumin 3.6G/DL Globulin 3.1G/DL Albumin/Globulin Ratio 1.2RATIO Chemistry Specimen Hemolysis < 15 Assessment & Plan Assessment 1. Relapsed non-Hodgkin's lymphoma, localized right upper extremity, status post excision. Current treatment R-ICE chemotherapy. Plan/Intensity of Service Will complete chemotherapy today. Oncology okay with dismissal this evening. Reviewed follow-up with patient, will need Granix injection on 09/08/16 , this has been arranged at her local hospital. Follow-up as scheduled, calendar has been mailed to patient. She has no questions. Code Status Full Code Hospital Course Summary Disclaimer The visit summary below is not to be considered part of the above Progress Note. Hospital Course Summary 09/05/16 Admit d/t high risk of acute renal injury, hematuria, and potential neurological toxicity with chemo. Attending: Dr. Nieto. Consult Dr. Turcios. Hx of hypotension after last round of chemo, hx of "irreg HR" - monitor on tele , request records from Dr. Omalley's office. Clonidine dose has already been reduced from BID to once daily. Pt does not want to stop this entirely, nor does she want to stop diltiazem. She also had some nervousness with the steroids last time - may need to treat with anxiolytics if BP tolerates. BP was elevated on admission. R-ICE chemotherapy with close monitoring of renal, neurological function, and CBC - per Dr. Turcios. NS ordered for hydration. Labs reviewed from 09/02/16 - WBC 14.6, hgb 12.1, Plt 141, bands 17%; Na 146, K 4.1, CO2 27, BUN 13, Cr 0.8, Phos 2.5, Mg 2.2, LFTs nml, LDH 730. SUE TURCIOS MD 09/06/16 1831: Assessment & Plan Plan/Intensity of Service I have seen and examined the patient. She is tolerating chemotherapy well. I have developed the plan of care. I will see the patient in the office prior to cycle 3. CHOLO WYATT APRN September 06, 2016 13:40 SUE TURCIOS MD September 06, 2016 18:31
--- NOTE | 2016-09-06 14:38 | PNPDOC ---
Subjective Date DATE: 09/06/16 TIME: 14:32 Subjective F/U: Chemo Doing well. Tolerating chemo-no n/v/f/c. Breathing well. No chest pain or pressure. Urinating well. Appetite stable-like the fish served here. Not feeling unsteady when up. Thoughts clear. Did have some difficulty sleeping last night due to steroids. Notes some slight swelling to legs. Objective Vital Signs Vital signs Vital Signs Date Time Temp Pulse Resp B/P Pulse Ox O2 Delivery O2 Flow Rate FiO2 09/06/16 12:00 96.7 69 18 142/82 98 Room Air Height (Feet): 4 Height (Inches): 10.00 Weight (Kilograms): 81.000 General General Appearance: Alert, Obese, Orientated x 3, Well Nourished, Well Developed, Cooperative, Looks Stated Age Eyes (Brief) Eyes: FOUND: EOMI, PERRL, NOT FOUND: scleral icterus ENMT (Brief) ENMT: FOUND: hearing intact, mucosa moist Neck (Brief) Neck: FOUND: midline, NOT FOUND: nuchal rigidity, spasm Respiratory (Brief) Respiratory: FOUND: clear all mcgarry, equal bilaterally, NOT FOUND: rales, wheezes Cardiovascular (Brief) Cardiac: FOUND: pedal edema (+1 ), regular rate, regular rhythm Abdomen (Brief) Abdominal: FOUND: BS normo active x4, soft, NOT FOUND: distended, tender Extremities (Brief) Extremity : Side: Bilateral Extremity: leg Extremity Finding: FOUND: edema (+1) Musculoskeletal (Brief) Musculoskeletal: FOUND: extremities move equally, NOT FOUND: deformity, loss of motion, spasm, tenderness Integumentary (Brief) Integumentary: FOUND: dry, warm Neurologic (Brief) Neurological: FOUND: cranial 2-12 intact, motor (Intact ) Psychiatric (Brief) Psychiatric: FOUND: alert, attentive, normal affect, oriented Laboratory Laboratory Laboratory Tests 09/06/16 04:25 Laboratory Tests 09/06/16 04:25 Assessment & Plan Problems: (1) Encounter for chemotherapy management (2) Scoliosis Status: Chronic (3) Fibromyalgia Status: Chronic (4) Lymphoma Status: Acute (5) Spastic colon Status: Chronic (6) Diverticulosis Status: Chronic (7) Polyarthritis Status: Chronic (8) Chronic back pain Status: Chronic (9) Hx of lymphoma Onset Date: ~ 2007 Status: Chronic (10) GERD (gastroesophageal reflux disease) Status: Chronic (11) Asthma Status: Chronic (12) Rectovaginal fistula Status: Chronic (13) Spinal stenosis Status: Chronic (14) Leaky heart valve Status: Chronic (15) Obesity (BMI 30-39.9) Status: Chronic Plan/Intensity of Service Continue with chemo as outlined by ONC. Anticipate discharge later today once chemo completed. Arrangements for outpatient Neupogen made. Will f/u with Dr Raphael as scheduled. DVT Prophylaxis: SCD'S Code Status Full Code Hospital Course Summary Disclaimer The hospital course summary below is not to be considered part of the above Progress Note. Hospital Course Summary 09/05/16 Admit d/t high risk of acute renal injury, hematuria, and potential neurological toxicity with chemo. Attending: Dr. Nieto. Consult Dr. Raphael. Hx of hypotension after last round of chemo, hx of "irreg HR" - monitor on tele , request records from Dr. Omalley's office. Clonidine dose has already been reduced from BID to once daily. Pt does not want to stop this entirely, nor does she want to stop diltiazem. She also had some nervousness with the steroids last time - may need to treat with anxiolytics if BP tolerates. BP was elevated on admission. R-ICE chemotherapy with close monitoring of renal, neurological function, and CBC - per Dr. Raphael. NS ordered for hydration. Labs reviewed from 09/02/16 - WBC 14.6, hgb 12.1, Plt 141, bands 17%; Na 146, K 4.1, CO2 27, BUN 13, Cr 0.8, Phos 2.5, Mg 2.2, LFTs nml, LDH 730. 09/06/16 Doing well. Tolerating chemo-no n/v/f/c. Breathing well. No chest pain or pressure. Urinating well. Appetite stable-like the fish served here. Not feeling unsteady when up. Thoughts clear. Did have some difficulty sleeping last night due to steroids. Notes some slight swelling to legs. Continue with chemo as outlined by ONC. Anticipate discharge later today once chemo completed. Arrangements for outpatient Granix made - Granix injection on 09/08/16, this has been arranged at her local hospital. Will f/u with Dr Raphael as scheduled. KARTHIKEYAN NIETO MD September 06, 2016 14:35
[2016-09-06 15:48] VITALS: BP 145/87; PULSE 75; RESP 16; TEMP 98; O2SAT 99
[2016-09-06] MEDS ORDERED: DEXAMETHASONE 10 MG in NORMAL SALINE 50 ML IV ONE (17:45)
[2016-09-06] MEDS ORDERED: NORMAL SALINE IV ONE (18:15)
[2016-09-06] MEDS ORDERED: ETOPOSIDE IV ONE (18:15)
--- NOTE | 2016-09-06 18:15 | NUR ---
SHIFT PT HAS BEEN PLEASANT AND COOPERATIVE ALL SHIFT. PT IS A&OX3, UP WITH NO ASSIST, LOW FALL. PT DENIES PAIN, N/V AND SOA. PT HAS BEEN UP TO SIDE OF BED FOR MEALS AND AMBULATES IN [address]. NO OTHER CHANGES SINCE PREVIOUS SHIFT.
[2016-09-06 19:45] VITALS: BP 147/92; PULSE 70; RESP 18; TEMP 97.7; O2SAT 96
[2016-09-06] MEDS: VENLAFAXINE 75 MG PO SCH (22:30)
--- NOTE | 2016-09-06 22:47 | NUR ---
Discharge: Discharge teaching reviewed with Pt, Pt spouse, and Pt daughter. Pt and family verbalize understanding. Pt is on room air. Pt is a&o. IV meds completed as ordered and flush completed. Port heparin locked and then dc'd. Pt tolerated well. Pt changed into own clothes and then assisted out in wheelchair to private vehicle at 2247.
--- NOTE | 2016-09-08 11:00 | DSF ---
ADMITTING DIAGNOSIS Encounter for chemotherapy. DISCHARGE DIAGNOSIS Encounter for chemotherapy. ASSOCIATED CONDITIONS/COMPLICATIONS 1. Relapse non-Hodgkin's lymphoma. 2. Scoliosis. 3. Fibromyalgia. 4. Spastic colon. 5. Diverticulosis. 6. Polyarthritis. 7. Chronic back pain. 8. Asthma. 9. Obesity. 10. GERD. CONSULTS Dr. Raphael - oncology. PROCEDURES R-ICE chemotherapy. CLINICAL RESUME Taty Hutton is a 70-year-old female who was placed in observation status at [facility] for chemotherapy. She does have stage IV grade 3 follicular lymphoma, initially diagnosed in 2007 but had recent disease recurrence in her right upper extremity. She did have a round of chemotherapy at [facility] on 08/22/16. She tolerated this chemotherapy well. Since discharge she has been in good health. She does know she feels a bit weak and dizzy when of blood pressure is slow but addresses with slow positional changes. She has not had recent illness. Denies viral syndrome. She denied nausea, vomiting, diarrhea. Bowels are stable. Appetite been stable. She denies paresthesias or oral sores. For complete details of the H&P refer to that document. HOSPITAL COURSE The patient was placed in outpatient observation status at [facility] under the care of Dr. Nieto. Dr. Raphael was consulted for oncological evaluation and chemotherapeutic recommendations. We did initiate chemotherapy as per Dr. Raphael's direction. Lab was monitored. SCDs were initiated for DVT prevention. Overall her hospital course was one of stability. She tolerated the chemotherapy well. Blood counts remained stable as did her electrolytes and renal function. Blood pressure did well. By time of discharge she was eating and drinking well. She was able to be discharged to home in stable condition. Narrative disclaimed: Above narrative is a brief summary of the patient's hospitalization; for complete details of hospital course, refer to the medical record. DISCHARGE CONDITION Stable/good. DIET Regular. ACTIVITIES As tolerated. MEDICATIONS 1. Tylenol 325 mg one to two q.4h. p.r.n. pain. 2. Aspirin 81 mg daily. 3. Calcium with vitamin D daily p.r.n. 4. Clonidine 0.3 mg daily 5. Dicyclomine 10 mg q.i.d. p.r.n. 6. Diltiazem 90 mg q.12h. 7. Multivitamin daily 8. Omeprazole 40 mg b.i.d. 9. Venlafaxine 75 mg q.h.s. FOLLOWUP 1. The patient will have grand X infusion in [place] on 09/08/16. 2. Patient will follow with Dr. Raphael as scheduled . INSTRUCTIONS TO PATIENT The patient was instructed on her diagnosis and treatments provided. She was given signs and symptoms to watch for by Dr. Raphael's group. She will watch for temperature greater than 100.4. She will watch for bleeding or bruising. She will watch for increased nausea, vomiting, fevers or chills. Should these or other symptoms occur she could be in contact with her care providers. If symptoms become quite dire she can present to emergency room for acute evaluation. She voiced understanding. Time spent with discharge greater than 30 minutes. TABITHA
== END 2016-09-06 22:47 | disposition home or self-care (01) ==
LOC: OBSVTOIN 08:11 → UNDOADMOB 08:11 → INTOOBSV 08:11 → MED 08:11
PROVIDERS: ADMIT Hospitalist; ATTEND Hospitalist
DX: Z51.11 Encounter for antineoplastic chemotherapy (principal); C82.24 Follicular lymphoma grade III, unspecified, lymph nodes of axilla and upper limb; I10 Essential (primary) hypertension; K21.9 Gastro-esophageal reflux disease without esophagitis; Z79.82 Long term (current) use of aspirin; Z79.899 Other long term (current) drug therapy; M41.9 Scoliosis, unspecified; M79.7 Fibromyalgia; K58.9 Irritable bowel syndrome, unspecified; K57.90 Diverticulosis of intestine, part unspecified, without perforation or abscess without bleeding; M13.0 Polyarthritis, unspecified; G89.29 Other chronic pain; J45.909 Unspecified asthma, uncomplicated; E66.9 Obesity, unspecified; Z68.37 Body mass index [BMI] 37.0-37.9, adult; N82.3 Fistula of vagina to large intestine; I38 Endocarditis, valve unspecified
CPT/HCPCS: 36415; 80053; 85025; 96365; 96366; 96367; 96413; 96415; 96417; A9270; G0378; G0379; J1100; J1453; J1642; J2469; J7030; J7050; J7070; J9045; J9181; J9208; 99218

== ENCOUNTER 2016-09-19 08:17 | Observation (INO) | payer MEDICARE, OTHER ==
[2016-09-19] VITALS (7 sets, daily range): BP systolic 130–166; BP diastolic 70–91; PULSE 56–71; RESP 16–20; TEMP 96.8–98.4; O2SAT 92–96; Ht 147.3 cm; Wt 80.5 kg
[~2016-09-19] VITALS: Ht 147.3 cm; Wt 80.5 kg
[~2016-09-19 08:17] MED LIST changes: -DOCU250C77 PO; -KETO10DR3 BOTH EYES; -RANI150C3 PO
--- OUTSIDE RECORDS SUMMARY | 2016-09-19 08:22 | XMS REPORT | Continuity of Care Document ---
Author Author [facility] Organization [facility] Address Unknown Phone Unavailable Support Name Relationship Address Phone KARTHIKEYAN GILLETTE MD Caregiver [address] [place] [address] [place] [address] Unavailable KARTHIKEYAN GILLETTE MD Caregiver [address] [place] [address] [place] [address] Unavailable OLIVERIO CASSIDY Caregiver [address] [place] [address] Unavailable GABY CHAPMAN Next Of Kin [address] [place] [address] Insurance Providers Guarantor Sudha Chapman Address [address] [place] [address] Email [email or web address] Payer Medicare Policy Number [id number] Subscriber's Name Sudha Chapman Relationship 18 Self Payer [employer] [facility] Policy Number [id number] Subscriber's Name Sudha Chapman Relationship 18 Self Group Number [id number] Advance Directives Directive Response Recorded Date/Time Ordered Resuscitation Status Full Code 09/05/16 10:48am Resuscitation Documents on File No 09/05/16 8:54am DPOA for Healthcare Only No 09/05/16 10:59am Living Will Yes 09/05/16 8:54am Problems Active Problems Medical Problem Onset Date Status Asthma Unknown Chronic Chronic back pain Unknown Chronic Diverticulosis Unknown Chronic Encounter for chemotherapy management Unknown Fibromyalgia Unknown Chronic GERD (gastroesophageal reflux disease) Unknown Chronic Hx of lymphoma ~2007 Chronic Hypokalemia Unknown Acute Leaky heart valve Unknown Chronic Lymphoma Unknown Acute Obesity (BMI 30-39.9) Unknown Chronic Polyarthritis Unknown Chronic Rectovaginal fistula Unknown Chronic Scoliosis Unknown Chronic Spastic colon Unknown Chronic Spinal stenosis Unknown Chronic Medications Current Home Medications Medication [...] Hcl 0.3 Mg Tablet 0.3 Mg Oral Daily 01/24/11 Dicyclomine Hcl 10 Mg Capsule 10 Mg Oral Four Times Daily as needed for Prn Orders 08/22/16 Diltiazem Hcl (Diltiazem Er) 90 Mg Cap.er.12h 90 Mg Oral Every 12 Hours 08/22/16 Multivitamin (Multi-Day Vitamins) 1 Each Tablet 1 Tab Oral Daily 08/22/16 Omeprazole (Prilosec) 40 Mg Capsule.dr 40 Mg Oral Twice A Day 26/03 Venlafaxine Hcl (Venlafaxine Hcl Er) 75 Mg Cap.er.24h 75 Mg Oral Bedtime 08/22/16 Social History Social History Problem Response Recorded Date/Time Onset Date Status Reason for Hospitalization Encounter for chemotherapy 09/06/2016 10:17pm Not Applicable Not Applicable Hx Substance Use No 04/04/2011 3:30pm Not Applicable Not Applicable Hx Alcohol Use Y rare 04/04/2011 3:30pm Not Applicable Not Applicable Has the pt used tobacco in the last 12 months No 09/05/2016 8:51am Not Applicable Not Applicable Query Response Start Date Stop Date Smoking Status Never smoker Hospital Discharge Instructions Instructions: Care Instructions: I was in the hospital because (patient own words): CHEMO Discharge Diet: Low sodium Discharge Activity: As tolerated Follow Up Appointments: [facility] on Friday 09/08 Dr Turcios as scheduled Pending Lab / Results: No Pending Lab Expected Signs/Symptoms: Post chemo symptoms as per Dr Turcios Notify Physician If: Temp >100.4. Urinary bleeding. Neurological changes During Business Hours:: Please call the physician's office at After Business Hours:: Please call [phone] and have the fabric machine operator page the physician. Pain Management/Treatment: Tylenol as needed Wound/Incision Care: n/a Condition at time of discharge: Good Plan of Care Discharge Date 09/06/16 10:47pm Disposition 01 DISCHARGED HOME, SELF-CARE Instructions/Education Provided Intravenous Chemotherapy (DC) Prescriptions See Medication Section Care Plan and Goals See Discharge Instructions Section Functional Status Query Response Date Recorded Mobility Status Ambulatory September 05, 2016 10:21am Assistive Devices None September 05, 2016 10:21am Activity Limitations None September 05, 2016 10:21am Feeding Ability Independent September 05, 2016 10:21am Toileting Ability Independent September 05, 2016 10:21am Grooming Ability Independent September 05, 2016 10:21am Dressing Ability Independent September 05, 2016 10:21am Driving Ability Independent September 05, 2016 10:21am Housework Ability Independent September 05, 2016 10:21am Meal Preparation Ability Independent September 05, 2016 10:21am Stair Climbing Ability Independent September 05, 2016 10:21am Ability to complete ADL's impeded by No change September 05, 2016 10:21am Cognitive/Perceptual Impairments Impaired taste September 05, 2016 10:21am Allergies, Adverse Reactions, Alerts No known allergies. Immunizations Query Response on File Recorded Date/Time Hx Influenza Vaccination Y fall 201509/05/16 8:51am Hx Pneumococcal Vaccination Y fall 201509/05/16 8:51am Hx Influenza Vaccination Y fall 201509/05/16 8:51am Influenza Vaccine Hx fall 201509/05/16 1:02pm Vital Signs Acute Vital Signs Vital Response Date/Time Temperature (Fahrenheit) 97.7 deg F (96.8 - 99.1) 09/06/2016 7:45pm Temperature (Calculated Celsius) 36.20423 degrees C (36.0 - 37.3) 09/06/2016 7:45pm Pulse Rate (adult) 70 bpm (60 - 100) 09/06/2016 7:45pm Respiratory Rate 18 breaths/min (10 - 20) 09/06/2016 7:45pm O2 Sat by Pulse Oximetry 96 % (90 - 100) 09/06/2016 7:45pm Oxygen Delivery Method Room Air 09/06/2016 7:45pm Blood Pressure 147/92 mm Hg 09/06/2016 7:45pm Blood Pressure Source Automatic Cuff 09/06/2016 7:45pm Height (Feet) 4 feet 09/06/2016 2:38pm Height (Inches) 10.00 inches 09/06/2016 2:38pm Weight (Kilograms) 81.000 kg 09/06/2016 7:18am Body Mass Index (BMI) 37.0 09/05/2016 8:56am Results Laboratory Results Test Name Result Units Flags Reference Collection Date/Time Result Date/ Time Comments Neutrophils (%) (Auto) 67.5 % H 33-66 08/19/2016 8:34am 08/19/2016 9: 02am Lymphocytes (%) (Auto) 22.5 % L 23-45 08/19/2016 8:34a 08/19/2016 9: 02am Monocytes (%) (Auto) 7.5 % 0-9.0 08/19/2016 8:34a 08/19/2016 9:02am Eosinophils (%) (Auto) 2.0 % 0-4 08/19/2016 8:34a 08/19/2016 9:02am Basophils (%) (Auto) 0.5 % 0-2 08/19/2016 8:34a 08/19/2016 9:02am Immature Granulocyte % (Auto) 0.0 % 0.0-0.5 08/19/2016 8:34a 2016 9:02am Absolute Neutrophils (auto) 3.8 T/MM3 1.8-7.7 08/19/2016 8:34a 2016 9:02am Absolute Lymphocytes (auto) 1.3 T/MM3 1-4.8 08/19/2016 8:34a 2016 9:02am Absolute Monocytes (auto) 0.4 T/MM3 0-0.8 08/19/2016 8:34a 08/19/2016 9:02am Absolute Eosinophils (auto) 0.1 T/MM3 0-0.5 08/19/2016 8:34a 2016 9:02am Absolute Basophils (auto) 0.0 T/MM3 0-0.2 08/19/2016 8:[facility] 08/19/2016 9:02am Absolute Immature Granulocyte (auto 0.00 T/MM3 0.00-0.03 08/19/2016 8: 34a 08/19/2016 9:02am Metamyelocytes % 3.0 % H 0-0 09/02/2016 9:02am 09/02/2016 9:49am Metamyelocytes # 0.4 T/MM3 09/02/2016 9:02am 09/02/2016 9:49am Lactate Dehydrogenase 730 U/L H 313-618 09/02/2016 9:02am 09/02/2016 9: 24am Uric Acid 4.6 MG/DL 2.5-7.5 09/02/2016 9:02am 09/02/2016 9:24am Phosphorus Level 2.5 MG/DL 2.5-4.5 08/23/2016 4:44am 08/23/2016 5:29am Magnesium Level 2.2 MG/DL 1.6-2.3 08/23/2016 4:44am 08/23/2016 5:29am Urine Collection Type CLEANC[place]-MIDSTREAM 08/23/2016 6:32pm 2016 6:38pm Urine Color YELLOW YELLOW 08/23/2016 6:32pm 08/23/2016 6:38pm Urine Turbidity CLEAR CLEAR 08/23/2016 6:32pm 08/23/2016 6:38pm Urine Specific [place] 1.010 L 1.015-1.025 08/23/2016 6:32pm 2016 6:38pm [...] MICROSCOPIC NOT IND. 08/23/2016 6:32pm 2016 6:38pm White Blood Count 7.9 T/MM3 4.5-11.0 09/06/2016 4:25am 09/06/2016 5: 39am Red Blood Count 3.60 M/MM3 L 4.00-5.20 09/06/2016 4:25am 09/06/2016 5: 39am Hemoglobin 11.4 GM/DL L 12-16 09/06/2016 4:09/06/2016 5:39am Hematocrit 34.0 % L 36-46 09/06/2016 4:09/06/2016 5:39am Mean Corpuscular Volume 94.4 UM3 80-100 09/06/2016 4:09/06/2016 5: 39am Mean Corpuscular Hemoglobin 31.7 UUG 26-34 09/06/2016 4:2016 5:39am Mean Corpuscular Hemoglobin Concent 33.5 GM/DL 31-37 09/06/2016 4:09/06/2016 5:39am RDW Standard Deviation 43.6 FL 36.9-50.2 09/06/2016 4:09/06/2016 5 :39am Platelet Count 189 T/MM3 130-400 09/06/2016 4:09/06/2016 5:39am Mean Platelet Volume 10.4 UM3 9.4-12.4 09/06/2016 4:09/06/2016 5: 39am Neutrophils % (Manual) 84.0 % H 33-66 09/06/2016 4:09/06/2016 6: 45am Band Neutrophils % 4.0 % D 0-6 09/06/2016 4:09/06/2016 6:45am Lymphocytes % (Manual) 7.0 % L 23-45 09/06/2016 4:09/06/2016 6: 45am Monocytes % (Manual) 5.0 % 0-9.0 09/06/2016 4:09/06/2016 6:45am Band Neutrophils # 0.3 T/MM3 09/06/2016 4:09/06/2016 6:45am Absolute Neutrophils (Manual) 6.6 T/MM3 1.8-7.7 09/06/2016 4:09/06 6:45am Lymphocytes # (Manual) 0.6 T/MM3 L 1-4.8 09/06/2016 4:09/06/2016 6: 45am Monocytes # (Manual) 0.4 T/MM3 0-0.8 09/06/2016 4:09/06/2016 6: 45am Red Cell Morphology Comment NORMAL 09/06/2016 4:09/06/2016 6: 45am Icterus Index < 2 0-7 09/06/2016 4:09/06/2016 5:45am Chemistry Specimen Hemolysis < 15 0-25 09/06/2016 4:09/06/2016 5 :45am 0-25: Specimen Exhibited No Hemolysis. Turbidity < 20 0-20 09/06/2016 4:09/06/2016 5:45am Sodium Level 144 MEQ/L 134-144 09/06/2016 4:09/06/2016 5:45am Potassium Level 3.7 MEQ/L 3.6-5 09/06/2016 4:09/06/2016 5:45am Chloride Level 106 MEQ/L 98-107 09/06/2016 4:09/06/2016 5:45am Carbon Dioxide Level 26 MEQ/L 22-30 09/06/2016 4:09/06/2016 5: 45am Anion Gap 12 MEQ/L 5-15 09/06/2016 4:09/06/2016 5:45am Blood Urea Nitrogen 17.0 MG/DL 7-17 09/06/2016 4:09/06/2016 5: 45am Creatinine 0.6 MG/DL L 0.7-1.2 09/06/2016 4:09/06/2016 5:45am BUN/Creatinine Ratio 28 RATIO H 6-26 09/06/2016 4:09/06/2016 5: 45am Glomerular Filtration Rate Calc 98 09/06/2016 4:09/06/2016 5: 45am Glucose Level 121 MG/DL H 65-110 09/06/2016 4:09/06/2016 5:45am Calculated Osmolality 280 MOSM/KG 261-280 09/06/2016 4:09/06/2016 5:45am Calcium Level 8.8 MG/DL 8.4-10.2 09/06/2016 4:09/06/2016 5:45am Total Bilirubin 0.30 MG/DL 0.20-1.30 09/06/2016 4:09/06/2016 5: 45am Alkaline Phosphatase 96 U/L 38-126 09/06/2016 4:09/06/2016 5:45am Total Protein 6.7 G/DL 6.3-8.2 09/06/2016 4:25am 09/06/2016 5:45am Albumin 3.6 G/DL 3.5-5.0 09/06/2016 4:25am 09/06/2016 5:45am Globulin 3.1 G/DL 2.4-3.6 09/06/2016 4:25am 09/06/2016 5:45am Albumin/Globulin Ratio 1.2 RATIO 1.1-2.2 09/06/2016 4:25am 09/06/2016 5 :45am Aspartate Amino Transf (AST/SGOT) 27 U/L 14-36 09/06/2016 4:25am 2016 5:45am Alanine Aminotransferase (ALT/SGPT) 42 U/L 9-52 09/06/2016 4:25am 09/06 5:45am Procedures No known history of procedures. Encounters Encounter Location Arrival/Admit Date Discharge/Depart Date Attending Provider Discharged Inpatient (obs) [facility] 09/05/16 8:11am 09/06/16 10 :47pm KARTHIKEYAN GILLETTE MD Registered Recurring [facility] 09/02/16 9:07am SUE TURCIOS MD Discharged Inpatient (obs) [facility] 08/22/16 8:10am 08/23/16 10 :08pm KARTHIKEYAN GILLETTE MD
--- OUTSIDE RECORDS SUMMARY | 2016-09-19 08:22 | XMS REPORT | Continuity of Care Document ---
Author Author [facility] Organization [facility] Address Unknown Phone Unavailable Care Team Providers Care Manager Intensive Care Unit Name Role Phone Primary Care Physician Unavailable Source Comments Some departments are not documenting in the electronic medical record. If you do not see the information that you expected, contact Release of Information in the Health Information Management department at [phone] for further assistance in locating additional records.[facility] Active Allergies and Adverse Reactions [...]
[2016-09-19] MEDS ORDERED: DIPH25CA84 PO (09:10)
[2016-09-19] MEDS ORDERED: KETO10DR3 BOTH EYES (09:13)
[2016-09-19] MEDS ORDERED: DEXAMETHASONE 10 MG in NORMAL SALINE 50 ML IV ONE (10:30)
[2016-09-19] MEDS ORDERED: PALONOSETRON 0.25mg/5ml INJECTION IV ONE (10:30)
[2016-09-19] MEDS ORDERED: NORMAL SALINE IV ONE ×4 (10:30→17:15)
[2016-09-19] MEDS ORDERED: FOSAPREPITANT IV ONE (10:30)
[2016-09-19] MEDS ORDERED: HYDROCORTISONE 100mg/2ml Injection IV PRN (10:45)
[2016-09-19] MEDS ORDERED: DiphenhydrAMINE 50 MG/ML INJECTION IV PRN (10:45)
[2016-09-19] MEDS ORDERED: ETOPOSIDE IV ONE (11:00)
[2016-09-19] MEDS ORDERED: SODIUM BICARBONATE 100 MEQ in D5W 1,000 ML IV ONE ×2 (11:30→13:30)
[2016-09-19] MEDS ORDERED: NS 500 ML IV PRN (12:30)
[2016-09-19] MEDS ORDERED: CARBOPLATIN IV ONE (12:30)
--- NOTE | 2016-09-19 12:55 | HPPDOC ---
VLAD BERNSTEIN APRN 09/19/16 1255: HPI - Adult Date DATE: 09/19/16 TIME: 12:54 General Chief Complaint: Chemo therapy, follicular lymphoma History of Present Illness Sudha is a 70 yr old female who is well known to the hospitalist services as she was been admitted recently for chemotherapy. She was initially diagnosed with lymphoma in 2007, but recently had a reoccurrence in the right upper extremity. She is currently diagnosed with stage IV grade 3 follicular lymphoma. She is currently under her 5th out of 6 weekly treatments of chemotherapy. She will complete treatment next week. She will then initiate radiation in November. She is admitted today as a direct admit under the hospitalist services with consultation from Dr Raphael for management of chemotherapy. She did have outpatient laboratory studies on 09/16. Her white count at that time was 42.4, hemoglobin 10.8, hematocrit 31.9, platelet count 140, 24% bandemia. Sodium is 145, potassium 3.5, BUN 13, creatine 0.7, glucose 169. Patient reports that she has been doing well since her last round of treatment. At the beginning of September. She does note that she started having some seasonal allergies over the past week, however, those have improved with using Benadryl at night. His has no acute pain, shortness of breath. No fevers or chills. Past Medical History Past Medical History History of lymphoma-2007 with recurrence "Leaky heart valve" Spastic colon Diverticulosis Fibromyalgia Scoliosis Spinal stenosis Polyarthritis. GERD Asthma Rectovaginal fistula Surgical History Patient's Surgical History: Port-A-Cath placement-08/14/16 Tonsillectomy Exploratory Lap 1977 [id number] Bilateral bunionectomy-2010 Left rotator cuff repair Left knee replacement Colorectal surgery for rectovaginal fistula repair Bladder tuck Current Medications Home Meds Reported Medications Ketotifen Fumarate (Alaway) 10 Ml Drops, 1 DROP BOTH EYES BID, BOTTLE 09/19/16 Diphenhydramine HCl (Benadryl) 25 Mg Capsule, 1 CAP PO Q6H Y for PRN ORDERS, CAP 09/19/16 Aspirin (Aspir 81) 81 Mg Tablet.dr 81 MG PO DAILY 08/22/16 Dicyclomine HCl (Dicyclomine HCl) 10 Mg Capsule, 10 MG PO QID Y for PRN ORDERS 08/22/16 Diltiazem HCl (Diltiazem ER) 90 Mg Cap.er.12h, 90 MG PO Q12HR 08/22/16 Venlafaxine HCl (Venlafaxine HCl ER) 75 Mg Cap.er.24h, 75 MG PO HS 08/22/16 Multivitamin (Multi-Day Vitamins) 1 Each Tablet, 1 TAB PO DAILY 08/22/16 Calcium Carbonate/Vitamin D3 (Caltrate 600 + D Tablet) 1 Each Tablet, 1 TAB PO DAILY Y for PRN ORDERS 08/22/16 Acetaminophen (Tylenol) 325 Mg Tablet, 325-650 MG PO Q4HR Y for PAIN 08/22/16 Omeprazole (Prilosec) 40 Mg Capsule.dr, 40 MG PO BID 01/24/11 Clonidine Hcl (Clonidine Hcl) 0.3 Mg Tablet, 0.3 MG PO DAILY 01/24/11 Allergies: Coded Allergies: No Known Allergies (Unverified , 01/24/11) Family History Family History: Father- Deseased at age 53 from [place] (also had Brain Tumor) Multiple family menters wtih breast cancer, Colorectal cancer, bladder cancer, Prostrate Cancer, Thyroid cancer Sister and mother had benign tremors Social History Smoking Status: Never smoker Substance Use Type: does not use Marital Status: Current Occupational Status: retired 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 Raphael Review of Systems ENMT Sinuses: FOUND: rhinorrhea All Other Systems All Other Systems: Reviewed (remainder of 10-point ROS Neg.) Physical Exam General General Nourishment: well nourished, well developed Vital Signs Vital Signs Date Time Temp Pulse Resp B/P Pulse Ox O2 Delivery O2 Flow Rate FiO2 09/19/16 12:31 96.8 56 18 166/87 09/19/16 08:43 Room Air Height (Feet): 4 Height (Inches): 10.00 Eyes Brief: FOUND: EOMI, PERRL ENMT Brief: FOUND: mucosa moist, normal dentition, NOT FOUND: pharnyx erythema Neck Brief: FOUND: midline, NOT FOUND: adenopathy, carotid bruits, tracheal deviation Respiratory Brief: FOUND: clear all mcgarry, equal bilaterally, NOT FOUND: wheezes Cardiovascular (brief) Cardiac Brief: FOUND: pedal edema (trace bilateral lower ext), regular rate, regular rhythm, NOT FOUND: murmur Abdomen (brief) Abdominal Brief: FOUND: BS normo active x4, soft, NOT FOUND: distended, tender Musculoskeletal (brief) Musculoskeletal Brief: NOT FOUND: tenderness Integumentary (brief) Integumentary Brief: FOUND: dry, pink, warm Neurologic (brief) Neurological Brief: FOUND: cranial 2-12 intact, motor (moves all ext equally) Neurologic RN Documented GCS Eye Opening: Verbal: Motor: Total: Psychiatric (brief) FOUND: alert, attentive, normal affect, oriented Assessment & Plan Problems: (1) Encounter for chemotherapy management Status: Acute (2) Lymphoma Status: Acute (3) Asthma Status: Chronic (4) Leaky heart valve Status: Chronic (5) Fibromyalgia Status: Chronic (6) Polyarthritis Status: Chronic (7) Diverticulosis Status: Chronic (8) GERD (gastroesophageal reflux disease) Status: Chronic (9) Spastic colon Status: Chronic (10) Chronic back pain Status: Chronic (11) Rectovaginal fistula Status: Chronic (12) Hx of lymphoma Onset Date: ~ 2007 Status: Chronic (13) Spinal stenosis Status: Chronic (14) Scoliosis Status: Chronic (15) Obesity (BMI 30-39.9) Status: Chronic Plan/Intensity of Service Admit as outpatient observations for chemotherapy for treatment of follicular lymphoma All chemotherapy treatment of orders as per Dr Raphael, consultation placed Will place patient on cardiac telemetry she has had episodes of irregular heart rate in the past during treatment. Patient may have regular diet Up in room with assistance We did discuss SCDs to bilateral lower extremity for DVT prophylaxis, however, patient refuses to wear them given her urinary urgency and need to be able to ambulate to the bathroom quickly. Again did review outpatient laboratory studies from 09/16/16. Will recheck CBC and BMP tomorrow to follow blood counts, renal function and electrolytes Will discuss further plan of care with attending, Dr. Nieto DVT Prophylaxis: SCD'S Code Status Hospital Course Summary Disclaimer The hospital course summary below is not to be considered part of the above Progress Note. Hospital Course Summary 09/19 Admit as outpatient observations for chemotherapy for treatment of follicular lymphoma All chemotherapy treatment of orders as per Dr Raphael, consultation placed Will place patient on cardiac telemetry she has had episodes of irregular heart rate in the past during treatment. Patient may have regular diet Up in room with assistance We did discuss SCDs to bilateral lower extremity for DVT prophylaxis, however, patient refuses to wear them given her urinary urgency and need to be able to ambulate to the bathroom quickly. Again did review outpatient laboratory studies from 09/16/16. Will recheck CBC and BMP tomorrow to follow blood counts, renal function and electrolytes Will discuss further plan of care with attending, KARTHIKEYAN Treviño MD 09/19/16 1404: Past Medical History Current Medications Home Meds Reported Medications Ketotifen Fumarate (Alaway) 10 Ml Drops, 1 DROP BOTH EYES BID, BOTTLE 09/19/16 Diphenhydramine HCl (Benadryl) 25 Mg Capsule, 1 CAP PO Q6H Y for PRN ORDERS, CAP 09/19/16 Aspirin (Aspir 81) 81 Mg Tablet.dr, 81 MG PO DAILY 08/22/16 Dicyclomine HCl (Dicyclomine HCl) 10 Mg Capsule, 10 MG PO QID Y for PRN ORDERS 08/22/16 Diltiazem HCl (Diltiazem ER) 90 Mg Cap.er.12h, 90 MG PO Q12HR 08/22/16 Venlafaxine HCl (Venlafaxine HCl ER) 75 Mg Cap.er.24h, 75 MG PO HS 08/22/16 Multivitamin (Multi-Day Vitamins) 1 Each Tablet, 1 TAB PO DAILY 08/22/16 Calcium Carbonate/Vitamin D3 (Caltrate 600 + D Tablet) 1 Each Tablet, 1 TAB PO DAILY Y for PRN ORDERS 08/22/16 Acetaminophen (Tylenol) 325 Mg Tablet, 325-650 MG PO Q4HR Y for PAIN 08/22/16 Omeprazole (Prilosec) 40 Mg Capsule., 40 MG PO BID 01/24/11 Clonidine Hcl (Clonidine Hcl) 0.3 Mg Tablet, 0.3 MG PO DAILY 01/24/11 Allergies: Coded Allergies: No Known Allergies (Unverified , 01/24/11) Assessment & Plan Plan/Intensity of Service Have independently interviewed and examined pt. Chart reviewed. Case discussed with my BRAKES INSPECTOR. Care plan developed with my supervision (Chemotherapy plan developed by Dr Raphael); agree with above. Doing well overall. No major problems or concerns since last visit. Has been tolerating chemotherapy well. Breathing stable. No chest pressure or pain. Appetite stable. Bowel function stable. No urinary symptoms. Lungs; clear bilaterally CV: regular AB: soft nt/nd +BS MSE: awake alert appropriate Plan: OBS for chemotherapy as outline by Dr Raphael. Tele to monitor HR. Encourage leg movement and ambulation to help decrease risk for DVT as pt not wanting to use SCD (needs to urinate often due to IVF given with chemo, and SCD to cumbersome to get in and out of). Check CBC and BMP in am. VLAD BERNSTEIN APRN September 19, 2016 12:55 KARTHIKEYAN NIETO MD September 19, 2016 14:04
[2016-09-19] MEDS ORDERED: DiphenhydrAMINE 25 MG CAPSULE PO PRN (13:45)
[2016-09-19] MEDS ORDERED: DICYCLOMINE 10 MG CAPSULE PO PRN (13:45)
--- NOTE | 2016-09-19 14:02 | CONSPD ---
CHOLO WYATT [employer] 09/19/16 1401: Consultation Info Date DATE: 09/19/16 TIME: 13:54 Date of Consultation: September 19, 2016 Attending Physician: Hesham Nieto M.D. Reason for Consultation: lymphoma HPI - Adult Date DATE: 09/19/16 TIME: 13:54 General Chief Complaint: Chemo therapy, follicular lymphoma History of Present Illness Well-known 70-year-old female, patient of with history of stage IV grade 3 follicular lymphoma, was initially diagnosed in 2007, treated withR- [facility] followed by 2 years of maintenance rituximab, completed in 2010. Recent event of recurrent disease in right upper extremity. She had consultation with Dr. Jhonatan Pendleton, [facility] and following multidisciplinary lymphoma conference, treatment option was determined to be Rituxan plus ifosfamide plus carboplatin plus etoposide, or R-ICE chemotherapy. With potential risk for acute renal injury, hematuria, neurological toxicity with this regimen, she is admitted for chemotherapy. She is receiving cycle 3 of this regimen. Past Medical History Past Medical History History of lymphoma-2007 with recurrence "Leaky heart valve" Spastic colon Diverticulosis Fibromyalgia Scoliosis Spinal stenosis Polyarthritis. GERD Asthma Rectovaginal fistula Surgical History Patient's Surgical History: Port-A-Cath placement-08/14/16 Tonsillectomy Exploratory Lap 1977 [id number] Bilateral bunionectomy-2010 Left rotator cuff repair Left knee replacement Colorectal surgery for rectovaginal fistula repair Bladder tuck Current Medications Home Meds Reported Medications Ketotifen Fumarate (Alaway) 10 Ml Drops, 1 DROP BOTH EYES BID, BOTTLE 09/19/16 Diphenhydramine HCl (Benadryl) 25 Mg Capsule, 1 CAP PO Q6H Y for PRN ORDERS, CAP 09/19/16 Aspirin (Aspir 81) 81 Mg Tablet.dr, 81 MG PO DAILY 08/22/16 Dicyclomine HCl (Dicyclomine HCl) 10 Mg Capsule, 10 MG PO QID Y for PRN ORDERS 08/22/16 Diltiazem HCl (Diltiazem ER) 90 Mg Cap.er.12h, 90 MG PO Q12HR 08/22/16 Venlafaxine HCl (Venlafaxine HCl ER) 75 Mg Cap.er.24h, 75 MG PO HS 08/22/16 Multivitamin (Multi-Day Vitamins) 1 Each Tablet, 1 TAB PO DAILY 08/22/16 Calcium Carbonate/Vitamin D3 (Caltrate 600 + D Tablet) 1 Each Tablet, 1 TAB PO DAILY Y for PRN ORDERS 08/22/16 Acetaminophen (Tylenol) 325 Mg Tablet, 325-650 MG PO Q4HR Y for PAIN 08/22/16 Omeprazole (Prilosec) 40 Mg Capsule.dr, 40 MG PO BID 01/24/11 Clonidine Hcl (Clonidine Hcl) 0.3 Mg Tablet, 0.3 MG PO DAILY 01/24/11 Allergies: Coded Allergies: No Known Allergies (Unverified , 01/24/11) Family History Family History: Father- Deseased at age 53 from [place] (also had Brain Tumor) Multiple family menters wtih breast cancer, Colorectal cancer, bladder cancer, Prostrate Cancer, Thyroid cancer Sister and mother had benign tremors Social History Smoking Status: Never smoker Substance Use Type: does not use Marital Status: Current Occupational Status: retired 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 - [employer] Advance Directives: Yes DPOA for Healthcare Only ([employer], ) Review of Systems Constitutional: REPORTS: fatigue, DENIES: chills, fever Eyes General: REPORTS: itching, watering ENMT Ears: DENIES: pain Sinuses: NOT FOUND: rhinorrhea Mouth/Throat: DENIES: sore throat, sores Cardiovascular DENIES: chest pain, dyspnea on exertion Pulmonary Respiratory: DENIES: cough, dyspnea GI Upper Abdomen: DENIES: food intolerances, nausea, vomiting Lower Abdomen: DENIES: blood in stool, constipation, diarrhea General: frequency (related to IV fluids), DENIES: dysuria Integumentary Skin: DENIES: itching, rash Neurological General: headache (dull headache earlier, resolved currently), tremor (chronic right hand), DENIES: weakness Psychiatric Psychiatric: DENIES: anxiety, depression Hematologic/Lymphatic DENIES: frequent nosebleeds, lymphadenopathy Physical Exam General General Nourishment: well developed, obese Vital Signs Vital Signs Date Time Temp Pulse Resp B/P Pulse Ox O2 Delivery O2 Flow Rate FiO2 09/19/16 12:31 96.8 56 18 166/87 09/19/16 08:43 Room Air Height (Feet): 4 Height (Inches): 10.00 Eyes Brief: FOUND: EOMI, NOT FOUND: scleral icterus ENMT Brief: FOUND: mucosa moist, NOT FOUND: lesions Neck Brief: NOT FOUND: adenopathy, tenderness Respiratory Brief: FOUND: clear all mcgarry, equal bilaterally, NOT FOUND: wheezes Cardiovascular (brief) Cardiac Brief: FOUND: pedal edema (mild. Trace bilateral lower extremities), regular rate, regular rhythm Abdomen (brief) Abdominal Brief: FOUND: BS normo active x4, NOT FOUND: hepatosplenomegaly, tender Lymphatic (brief) Lymphatic Brief: NOT FOUND: adenopathy, lymphedema Musculoskeletal (brief) Musculoskeletal Brief: NOT FOUND: loss of motion, tenderness Integumentary (brief) Integumentary Brief: FOUND: dry, warm, NOT FOUND: rash Neurologic (brief) Neurological Brief: FOUND: cranial 2-12 intact, motor (no acute motor deficit) Neurologic RN Documented GCS Eye Opening: Verbal: Motor: Total: Psychiatric (brief) FOUND: alert, attentive, normal affect, oriented Impression/Recommendation Impression 1. Relapsed non-Hodgkin's lymphoma, localized to right upper extremity, status post excision. 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 Currently receiving R-ICE chemotherapy, tolerating well. Recommendation Continue current chemotherapy per orders. Continue supportive care and close monitoring of CBC, renal, and neurological function. CBC, CMP, LDH, magnesium ordered for tomorrow. Dr. Perdomo will see patient later today. Patient has no questions. ROSA PERDOMO 09/19/16 7902: Past Medical History Current Medications Home Meds Reported Medications Ketotifen Fumarate (Alaway) 10 Ml Drops, 1 DROP BOTH EYES BID, BOTTLE 09/19/16 Diphenhydramine HCl (Benadryl) 25 Mg Capsule, 1 CAP PO Q6H Y for PRN ORDERS, CAP 09/19/16 Aspirin (Aspir 81) 81 Mg Tablet.dr 81 MG PO DAILY 08/22/16 Dicyclomine HCl (Dicyclomine HCl) 10 Mg Capsule, 10 MG PO QID Y for PRN ORDERS 08/22/16 Diltiazem HCl (Diltiazem ER) 90 Mg Cap.er.12h, 90 MG PO Q12HR 08/22/16 Venlafaxine HCl (Venlafaxine HCl ER) 75 Mg Cap.er.24h, 75 MG PO HS 08/22/16 Multivitamin (Multi-Day Vitamins) 1 Each Tablet, 1 TAB PO DAILY 08/22/16 Calcium Carbonate/Vitamin D3 (Caltrate 600 + D Tablet) 1 Each Tablet, 1 TAB PO DAILY Y for PRN ORDERS 08/22/16 Acetaminophen (Tylenol) 325 Mg Tablet, 325-650 MG PO Q4HR Y for PAIN 08/22/16 Omeprazole (Prilosec) 40 Mg Capsule.dr, 40 MG PO BID 01/24/11 Clonidine Hcl (Clonidine Hcl) 0.3 Mg Tablet, 0.3 MG PO DAILY 01/24/11 Allergies: Coded Allergies: No Known Allergies (Unverified , 01/24/11) Impression/Recommendation Impression Patient examined, Chart reviewed.. Patient in for last cycle of ifosphamide, carboplatin and etoposide. Had the Carbo and Etoposide earlier today. Getting hydration for Ifex. Will get this later today. LDH high on Friday Repeat order for tomorrow AM. Will continue to provide supportive care and chemotherapy supervision. Recommendation I participated in the development of the plan of care of this patient and discussed with Dr. Raphael. CHOLO WYATT APRN September 19, 2016 14:01 ROSA PERDOMO September 19, 2016 16:58
[2016-09-19] MEDS ORDERED: MESNA IV ONE (17:15)
[2016-09-19] MEDS ORDERED: IFOSFAMIDE IV ONE (17:15)
[2016-09-19] MEDS: VENLAFAXINE XR 75 MG CAPSULE PO SCH (21:10)
[2016-09-19] MEDS: DILTIAZEM 90 MG PO SCH (21:10)
[2016-09-19] MEDS: OMEPRAZOLE 20 MG CAPSULE PO SCH (21:11)
[2016-09-20 00:14] VITALS: BP 150/79; PULSE 65; RESP 18; TEMP 97
[2016-09-20 05:33] LABS: HCT - HEMATOCRIT 29.9 % (36-46); HGB - HEMOGLOBIN 10.3 GM/DL (12-16); MEAN CORPUSCULAR HGB 31.9 UUG (26-34); MEAN CORPUSCULAR HGB CONC(MCHC 34.4 GM/DL (31-37); MEAN CORPUSCULAR VOLUME 92.6 UM3 (80-100); MEAN PLATELET VOLUME 10.5 UM3 (9.4-12.4); RED BLOOD COUNT 3.23 M/MM3 (4.00-5.20)
[2016-09-20 05:36] LABS: ALBUMIN 3.9 G/DL (3.5-5.0); ALBUMIN/GLOBULIN RATIO 1.6 RATIO (1.1-2.2); ALKALINE PHOSPHATASE 119 U/L (38-126); ALT (SGPT) 39 U/L (9-52); ANION GAP 11 MEQ/L (5-15); AST (SGOT) 28 U/L (14-36); BUN/CREATININE RATIO 26 RATIO (6-26); CHLORIDE 105 MEQ/L (98-107); CO2 - CARBON DIOXIDE 28 MEQ/L (22-30); CREATININE 0.5 MG/DL (0.7-1.2); GLOMERULAR FILTRATION RATE 121; GLUCOSE 118 MG/DL (65-110); LDH 875 U/L (313-618); MAGNESIUM 2.3 MG/DL (1.6-2.3); POTASSIUM 3.9 MEQ/L (3.6-5); SODIUM 144 MEQ/L (134-144); TOTAL PROTEIN 6.4 G/DL (6.3-8.2)
[2016-09-20 06:04] LABS: BAND NEUTROPHILS # 0.5 T/MM3; LYMPHOCYTES # (MANUAL) 0.4 T/MM3 (1-4.8); MONOCYTES # (MANUAL) 1.1 T/MM3 (0-0.8); NEUTROPHILS #(MANUAL)-ABSOLUTE 10.1 T/MM3 (1.8-7.7); NUCLEATED RED BLOOD CELLS 1; TOTAL CELLS COUNTED 100 %
[2016-09-20 06:05] LABS: ANISOCYTOSIS 1+
[2016-09-20] MEDS: OMEPRAZOLE 20 MG CAPSULE PO SCH ×2 (06:50→20:09)
[2016-09-20 08:01] VITALS: BP 146/88; PULSE 74; RESP 18; TEMP 97.6; O2SAT 95
[2016-09-20] MEDS: DILTIAZEM 90 MG PO SCH ×2 (08:13→20:10)
[2016-09-20] MEDS ORDERED: CLONIDINE 0.3 MG TABLET PO SCH (09:00)
[2016-09-20] MEDS ORDERED: ASPIRIN *EC* 81mg TABLET PO SCH (09:00)
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
--- NOTE | 2016-09-20 12:27 | PNPDOC ---
CHOLO CAMPOS LEAK INSPECTOR 09/20/16 1224: Subjective Date DATE: 09/20/16 TIME: 12:21 Reclining in hospital bed, alone in room. Alert and oriented, pleasant affect. Denies fever, chills, night sweats. Is eating and drinking well. Reports "bit my lip yesterday and it bled and was sore. I'ts better today. Then my contact ( left) broke in my eye....the [employer] got it out." Denies eye pain or vision changes. Voiding normally. Last bowel movement 2 days ago. Denies diarrhea or constipation. General: No fever, no night sweats Eyes: No redness, no pain, no diplopia ENT: + mouth sore, no trouble swallowing Cardiac: No chest pain no palpitations Pulmonary: No cough, no shortness of breath, no wheezing Abdomen: No pain, no nausea vomiting, no diarrhea or constipation : + Frequency, no dysuria, or hematuria Musculoskeletal: No arthritis, no myalgias Neurological: No headaches, no focal weakness Skin: No rash, no sores Psychiatric: No anxiety, no depression Objective Vital Signs Vital Signs 09/20/16 08:01 Temp 97.6 Pulse 74 Resp 18 B/P 146/88 Pulse Ox 95 O2 Delivery Room Air Height (Feet): 4 Height (Inches): 10.00 Weight (Kilograms): 80.500 General Alert, Orientated x 3, No Acute Distress Eyes (Brief) Eyes: FOUND: EOMI, NOT FOUND: scleral icterus ENMT (Brief) ENMT: FOUND: lesions (less than 0.5 cm shallow lesion inferior lower lip.), mucosa moist Neck (Brief) Neck: NOT FOUND: adenopathy, tenderness Respiratory (Brief) Respiratory: FOUND: clear all mcgarry, equal bilaterally, NOT FOUND: wheezes Cardiovascular (Brief) Cardiac: FOUND: regular rate, regular rhythm, NOT FOUND: pedal edema Abdomen (Brief) Abdominal: FOUND: BS normo active x4, soft, tender, NOT FOUND: hepatosplenomegaly (difficult to assess secondary to body habitus) Lymphatic (Brief) NOT FOUND: adenopathy, lymphedema Musculoskeletal (Brief) NOT FOUND: loss of motion, tenderness Neurologic (Brief) FOUND: cranial 2-12 intact, NOT FOUND: motor (no acute motor deficit) Psychiatric (Brief) FOUND: alert, attentive, normal affect, oriented Laboratory Laboratory Tests Test 09/20/16 04:03 White Blood Count 12.0T/MM3 Red Blood Count 3.23M/MM3 Hemoglobin 10.3GM/DL Hematocrit 29.9% Mean Corpuscular Volume 92.6UM3 Mean Corpuscular Hemoglobin 31.9UUG Mean Corpuscular Hemoglobin Concent 34.4GM/DL RDW Standard Deviation 43.7FL Platelet Count 117T/MM3 Mean Platelet Volume 10.5UM3 Immature Granulocyte % (Auto) % Neutrophils (%) (Auto) % Lymphocytes (%) (Auto) % Monocytes (%) (Auto) % Eosinophils (%) (Auto) % Basophils (%) (Auto) % Absolute Immature Granulocyte (auto T/MM3 Absolute Neutrophils (auto) T/MM3 Absolute Lymphocytes (auto) T/MM3 Absolute Monocytes (auto) T/MM3 Absolute Eosinophils (auto) T/MM3 Absolute Basophils (auto) T/MM3 Neutrophils % (Manual) 84.0% Band Neutrophils % 4.0% Lymphocytes % (Manual) 3.0% Monocytes % (Manual) 9.0% Absolute Neutrophils (Manual) 10.1T/MM3 Band Neutrophils # 0.5T/MM3 Lymphocytes # (Manual) 0.4T/MM3 Monocytes # (Manual) 1.1T/MM3 Nucleated Red Blood Cells 1 Anisocytosis 1+ Red Cell Morphology Comment Abnormal Turbidity < 20 Sodium Level 144MEQ/L Potassium Level 3.9MEQ/L Chloride Level 105MEQ/L Carbon Dioxide Level 28MEQ/L Anion Gap 11MEQ/L Blood Urea Nitrogen 13.0MG/DL Creatinine 0.5MG/DL Glomerular Filtration Rate Calc 121 BUN/Creatinine Ratio 26RATIO Glucose Level 118MG/DL Calculated Osmolality 278MOSM/KG Calcium Level 9.0MG/DL Magnesium Level 2.3MG/DL Total Bilirubin 0.30MG/DL Icterus Index < 2 Aspartate Amino Transf (AST/SGOT) 28U/L Alanine Aminotransferase (ALT/SGPT) 39U/L Alkaline Phosphatase 119U/L Lactate Dehydrogenase 875U/L Total Protein 6.4G/DL Albumin 3.9G/DL Globulin 2.5G/DL Albumin/Globulin Ratio 1.6RATIO Chemistry Specimen Hemolysis < 15 Assessment & Plan Assessment 1. Relapsed non-Hodgkin's lymphoma, localized to right upper extremity, status post excision. 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 Currently receiving third cycle of R-ICE chemotherapy, tolerating well. 2. Small oral lesion, self-inflicted bite wound. No sign symptoms of inflammation. Reassured patient. Plan/Intensity of Service Currently receiving cycle 3, day 5 of R-ICE chemotherapy. Planning discharge after completion of etoposide today. Outpatient G-CSF has been arranged at [facility] on 09/22/16 daily through 09/29/16, labs and f/u with Dr. Raphael scheduled for 10/16/16 ; patient has written schedule with all of this information. Reinforced neutropenic precautions, let us know if any new signs or symptoms. Acknowledges/agrees to do. Asks when can resume water exercises. Explained this is OK after her jamari; would recommend at least 17-21 days following chemotherapy and if labs values are okay. Code Status Full Code Hospital Course Summary Disclaimer The visit summary below is not to be considered part of the above Progress Note. Hospital Course Summary 09/19 Admit as outpatient observations for chemotherapy for treatment of follicular lymphoma All chemotherapy treatment of orders as per Dr Raphael, consultation placed Will place patient on cardiac telemetry she has had episodes of irregular heart rate in the past during treatment. Patient may have regular diet Up in room with assistance We did discuss SCDs to bilateral lower extremity for DVT prophylaxis, however, patient refuses to wear them given her urinary urgency and need to be able to ambulate to the bathroom quickly. Again did review outpatient laboratory studies from 09/16/16. Will recheck CBC and BMP tomorrow to follow blood counts, renal function and electrolytes Will discuss further plan of care with attending, ROSA Martinez 09/20/16 1930: Assessment & Plan Assessment Patient examined. Did well with chemotherapy. Small subconjuctival hemorrhage left eye laterally. This was secondary to stuck contact. Doing will otherwise. Will complet chemotherapy this evening. Has plan for neupogen and follow up. I agree with documentation by Phoebe Campos and I participated in the development of the plan of care for this patient. Item Value Date Time White Blood Count 42.4 T/MM3 *H 09/16/16 0908 Hemoglobin 10.8 GM/DL L 09/16/16 0908 Platelet Count 140 T/MM3 09/16/16 0908 Neutrophils % (Manual) 57.0 % 09/16/16 0908 Band Neutrophils % 24.0 % H # 09/16/16 0908 Lactate Dehydrogenase 1858 U/L H 09/16/16 0908 Alkaline Phosphatase 149 U/L H 09/16/16 0908 Urine Ketones 3+ A 08/23/16 183 Urine Blood Negative 08/23/16 1832 White Blood Count 12.0 T/MM3 H 09/20/16 0403 Platelet Count 117 T/MM3 L 09/20/16 0403 Creatinine 0.5 MG/DL L 09/20/16 0403 Lactate Dehydrogenase 875 U/L H 09/20/16 0403 Aspartate Amino Transf (AST/SGOT) 28 U/L 09/20/16 0403 Alanine Aminotransferase (ALT/SGPT) 39 U/L 09/20/16 0403 Alkaline Phosphatase 119 U/L 09/20/16 0403 Plan/Intensity of Service Home today with follow up with Dr. Raphael. CHOLO CAMPOS APRN September 20, 2016 12:24 ROAS MEDRANO September 20, 2016 19:30
[2016-09-20 16:20] VITALS: BP 146/93; PULSE 72; RESP 18; TEMP 96.8; O2SAT 95
[2016-09-20] MEDS ORDERED: DEXAMETHASONE 10 MG in NORMAL SALINE 50 ML IV ONE (18:30)
[2016-09-20] MEDS ORDERED: NORMAL SALINE IV ONE (19:00)
[2016-09-20] MEDS ORDERED: ETOPOSIDE IV ONE (19:00)
[2016-09-20 19:55] VITALS: PULSE 72
[2016-09-20 19:58] VITALS: BP 161/87; PULSE 71; RESP 16; TEMP 97.3; O2SAT 95
[2016-09-20] MEDS: VENLAFAXINE XR 75 MG CAPSULE PO SCH (20:11)
--- NOTE | 2016-09-26 17:32 | DSF ---
ADMISSION DIAGNOSIS Encounter for chemotherapy management. DISCHARGE DIAGNOSIS Encounter for chemotherapy management--status post third cycle of R-ICE chemotherapy. ASSOCIATED CONDITIONS AND COMPLICATIONS 1. Relapse of non-Hodgkin's lymphoma, localized to right upper extremity. 2. Asthma. 3. Leaky heart valve. 4. Fibromyalgia. 5. Polyarthritis. 6. Diverticulosis. 7. GERD. 8. Spastic colon. 9. Chronic back pain. 10. Chronic rectovaginal fistula. 11. Spinal stenosis. 12. Scoliosis. 13. Subconjunctival bleed. 14. Obesity with BMI 37.1. CONSULTS Dr. Raphael--Oncology. PROCEDURE R-ICE chemotherapy. CLINICAL RESUME Sudha Hutton is a 70-year-old female who presents to [facility] Emergency Room for round three of her R-ICE chemotherapy. She was initially diagnosed with lymphoma in 2007 but recently had recurrence of right upper extremity. She was diagnosed with stage IV grade 3 follicular lymphoma. She is scheduled for her last round of chemotherapy today and then will initiate radiation therapy in November. She reports she has been doing well since her last round of therapy. She does note she has been having some seasonal allergies over the last week but these have improved through the use of Benadryl at night. She has not been having acute pain, shortness of breath, fevers, or chills. For complete details of the H&P refer to that document. LABORATORY White blood count is 12.0, with 84% neutrophils and 4% bands. Hemoglobin is 10.3, with hematocrit 29.9, MCV 92.6, and platelets 117,000. Serum sodium is 144, potassium 3.9, chloride 105, CO2 28, BUN 13, with creatinine 0.5, GFR 121, and blood glucose 118. Transaminases are unremarkable. LDH is 875. HOSPITAL COURSE Patient was placed in outpatient observation status at [facility] under the care of Dr. Nieto. Dr. Raphael was consulted for management of chemotherapy. Cardiac telemetry was monitored secondary to episodes of irregular heart rate during past treatment. We did encourage SCDs to lower extremities for DVT prophylaxis, but patient was quite reluctant for these given her urinary urgency and need to ambulate to the bathroom quickly. She was placed on a regular diet. Home medications were continued. Dr. Raphael did initiate chemotherapy. Overall her hospital course was one of very good improvement. While she did develop a subconjunctival bleed, Suki Chatman APRN, did find this was secondary to a contact lens that had been stuck in her eye. Suki BERTA Chatman, was able to remove the contact lens successfully. She really did well with chemotherapy. We did not see temperature elevations. We did not see irregular rhythm abnormalities. Blood pressure did well. She did not have nausea or vomiting. After chemotherapy was completed, she was able to be discharged to home. She will continue with outpatient Neupogen per protocol. NARRATIVE DISCLAIMER: Above narrative is a brief summary of the patient's hospitalization. For complete details of the hospital course, refer to the medical record. DISCHARGE CONDITION Stable/good. DIET Low sodium. ACTIVITIES As tolerated. MEDICATIONS 1. Tylenol 325 mg one to two q.4h. p.r.n. pain. 2. Aspirin 81 mg daily. 3. Calcium with vitamin D daily p.r.n. 4. Clonidine 0.3 mg daily. 5. Dicyclomine 10 mg q.i.d. p.r.n. 6. Diltiazem ER 90 mg b.i.d. 7. Benadryl 25 mg q.6h. p.r.n. allergies. 8. Alaway one drop both eyes b.i.d. 9. Multivitamin daily. 10. Omeprazole 40 mg b.i.d. 11. Venlafaxine ER 75 mg q.h.s. FOLLOWUP 1. Outpatient G-CSF and labs were arranged at [facility]. 2. Patient will follow up with Dr. Raphael as scheduled on 10/16/2016. Written schedule was given to the patient. INSTRUCTIONS TO PATIENT Patient was instructed on her diagnosis and treatments provided. She was encouraged to be adherent with medications and also be faithful with lab monitoring and Neupogen injection. Phoebe Campos APRN, reinforced neutropenic precautions to patient. She will notify Phoebe Campos APRN, if any signs or symptoms occur. She will watch for a temperature greater than 100.4. She will watch for worsening shortness of breath, cough, congestion, or chest pain. Should these or other problems or need occur, she can be in contact with her primary provider or with Dr. Raphael. If symptoms become quite dire, she can present to emergency room for acute evaluation. She voiced understanding of the above. Time spent with discharge greater than 30 minutes. TABITHA
== END 2016-09-20 22:10 | disposition home or self-care (01) ==
LOC: UNDOADMOB 08:17 → MED 08:17
PROVIDERS: ADMIT Internal Medicine Medical Oncology; ATTEND Hospitalist
DX: Z51.11 Encounter for antineoplastic chemotherapy (principal); C82.24 Follicular lymphoma grade III, unspecified, lymph nodes of axilla and upper limb; Z79.899 Other long term (current) drug therapy; M79.7 Fibromyalgia; K21.9 Gastro-esophageal reflux disease without esophagitis; J45.909 Unspecified asthma, uncomplicated; Z79.82 Long term (current) use of aspirin; I38 Endocarditis, valve unspecified; K57.30 Diverticulosis of large intestine without perforation or abscess without bleeding; K58.9 Irritable bowel syndrome, unspecified; G89.29 Other chronic pain; E66.9 Obesity, unspecified; Z68.37 Body mass index [BMI] 37.0-37.9, adult; H11.32 Conjunctival hemorrhage, left eye; T15.82XA Foreign body in other and multiple parts of external eye, left eye, initial encounter; S00.572A Other superficial bite of oral cavity, initial encounter; X83.8XXA Intentional self-harm by other specified means, initial encounter; X58.XXXA Exposure to other specified factors, initial encounter; Y93.89 Activity, other specified; Y92.89 Other specified places as the place of occurrence of the external cause; Y99.8 Other external cause status
CPT/HCPCS: 80053; 83615; 83735; 85025; 96365; 96366; 96367; 96375; 96413; 96415; 96417; 99218